=== PATIENT | female | born 1950 | race Caucasian/White ===

== ENCOUNTER 2017-05-12 07:30 | Inpatient (IN) | payer OTHER ==
--- NOTE | 2017-05-06 16:07 | Cons- Neurosurgical ---
General Information and HPI Consulting Request Date of Consult: 05/06/17 Requested By: Raúl Cantu MD Reason for Consult: Lower back pain and left leg pain Source of Information: patient Exam Limitations: no limitations History of Present Illness: 66-year-old right-handed lady who started 5 years ago having lower back pain. 3 years ago this pain was just started having left leg pain as well. She went through a series of injections which did not improve her beyond a certain degree. The symptoms have returned and especially the last few weeks and significantly bothersome in her left leg. Symptoms are worse with activity bending sitting standing and walkingsomewhat improved with rest and medication. She complains of weakness in her lower back, numbness in her leg and tingling on the left side. She has had extensive physical therapy in the past Allergies/Medications Allergies: Coded Allergies: adhesive (RASH 05/03/17) Home Med List: Atorvastatin Calcium 10 MG TABLET 1 TAB PO QPM CHOLESTEROL (Reported) Diltiazem HCl (Diltiazem 24HR ER) 240 MG CAP.ER.24H 1 CAP PO QPM BP (Reported ) Losartan Potassium (Cozaar) 25 MG TABLET 1 TAB PO QPM BP (Reported) Magnesium Oxide (Magox 400) 400 MG TABLET 1 TAB PO QPM HEART (Reported) Metoprolol Succ XL (Toprol XL) 25 MG TAB 1 TAB PO QPM BP (Reported) Current Medications: She is taking Criselda M atorvastatin metoprolol losartan and magnesium oxide Past History Medical History Blood Transfusion Hx: No Neurological: NONE EENT: NONE Cardiovascular: hypertension, hyperlipidemia Respiratory: NONE Gastrointestinal: NONE Hepatic: NONE Renal: NONE Musculoskeletal: NONE Psychiatric: NONE Endocrine: NONE Blood Disorders: NONE Cancer(s): colon/rectal cancer MANAGER FLEET/Reproductive: deferred Other Medical Hx: Hypertension high cholesterol hepatitis C palpitations: Resection knee replacements and lumbar spine surgery Surgical History Pertinent Surgical History: colon resection, knee replacement, spinal fusion Psychosocial History Where Do You Live? Home Who Do You Live With? spouse Services at Home: None Primary Language: Bermudian Smoking Status: Never Smoked ETOH Use: denies use Illicit Drug Use: denies illicit drug use Living Will? unknown Power of Cloth Trimmer Hand/HCP? unknown Name of POA/HCP: Dr. Clark Other Social History: Irrelevant Functional Ability ADLs Independent: dressing. Ambulation: independent IADLs Independent: shopping. Employment History Employment: Employed Profession/Employer: realtor Retired? no Review of Systems Review of Systems: She complains of weakness in her low back numbness in her leg tingling in the left leg she denies any bowel bladder or sexual dysfunction she has some knee pain associated Review of Systems Constitutional: Denies: no symptoms. EENTM: Denies: no symptoms. Cardiovascular: Denies: no symptoms. Respiratory: Denies: no symptoms. GI: Denies: no symptoms. Genitourinary: Denies: no symptoms. Musculoskeletal: Denies: no symptoms. Skin: Denies: no symptoms. Neurological/Psychological: Denies: no symptoms. Hematologic/Endocrine: Denies: no symptoms. Immunologic/Allergic: Denies: no symptoms. Exam & Diagnostic Data Vital Signs and I&O Blood pressure 120/60 Physical Exam: -3, 190 pounds. She has a well-healed scar on her back Treatment excellent range of motion bending minimally compromised level of hyperextension. Her gait favors slightly left leg. She is able to stand on heels and tiptoes. Motor strength is 5 over 5 in all groups. She has absent knee jerks bilaterally on the right due to her surgery. She has decreased sensation over L4 and possibly an L3 distribution on the left. Ankle jerks are present toes of ongoing. She has negative straight leg raising Physical Exam General Appearance: no apparent distress Head: atraumatic Eyes: Bilateral: normal appearance. Ears, Nose, Throat: normal pharynx Neck: supple Respiratory: chest non-tender Cardiovascular: edema Breasts deferred Peripheral Pulses: 2+ carotid (R), 2+ carotid (L) Gastrointestinal: soft Rectal: deferred Back: decreased range of motion, scar from previous surgery Extremities: normal inspection Neurologic/Psych: awake, alert, oriented x 3 Cranial Nerves: normal hearing Reflexes: 2+: bicep (R). Skin: intact Lymphatic: no anterior cervical kishore Reproductive: deferred Pelvic: deferred Other Physical Findings: See above note Last 24 Hours of Labs: EKG pending Imaging Results: CT scan shows a collapsed space at L3 4 as well as a prior left-sided laminotomy , osteophytic ridging and facet arthrosis worse on the right. an mri shows severe facet arthropathic changes at l3 4 as well as a possible disc and left neural foramen with impingement of the exiting root at that level Other Results: Coagulation within normal limits Assessment/Plan Assessment/Plan L3 4 collapse spondylosis and foraminal entrapment possible disc disease Candidate for decompression of the nerve roots and stabilization Other Findings/Comments: Martir findings Copies To: Alondra HOLLINGSWORTH,Raúl Cruz Consult Acknowledgment - Thank you for your consult request.
[~2017-05-12] VITALS: Ht 160 cm; Wt 89.8 kg
[~2017-05-12 07:30] MED LIST: ATORVASTATIN CA10 M1 PO; ATORVASTATIN CA10 MG PO; CALCIUM 600600 M1 PO; COZAAR25 M1 PO; DILTIAZEM 24HR240 MG PO; DILTIAZEM HCL240 MG PO; FISH OIL CONCEN1 SGL PO; LISINOPRIL2.5 MG PO; MAGOX 400400 MG PO; METOPROLOL SUCC50 M1 PO; MOTRIN 600 MG600 MG PO; NORFLEX100 MG PO; TOPROL XL25 M1 PO; VITAMIN D2000 UNIT PO; VITAMIN D31000 I1 PO
--- NOTE | 2017-05-14 13:47 | Operative Report ---
Operative/Inv Procedure Report Surgery Date: 05/14/17 Name of Procedure: #1 revision of scar lumbar over 5 cm #2 left revision hemilaminectomy L3 4 #3 left medial facetectomy and foraminotomy L34 #4 left neurolysis L3-4 #5 right hemilaminotomy L3 4 with medial facetectomy and foraminotomy #6 preparation of space for fusion L3 4 left #7 reconstitution of graft material #8 insertion of TL ORIF fuse interbody cage As secondary #9 stealth registration #10 stealth guided pedicle screw insertion L3-L4 bilateral #11 arthrodesis auto- and allograft L3 4 Pre-Operative Diagnosis: #1 foraminal entrapment L3 4 bilateral left worse than right #2 spondylosis L3 4 #3 collapsed disc space L3 4 Post-Operative Diagnosis: Same Estimated Blood Loss: 750 mL Surgeon/Closet Builder: Alondra HOLLINGSWORTH,Raúl Cruz(co-surgeon) Dr. Neto Barton Anesthesia: general endotracheal tube Monitors: neurophysiology IV Fluids: d5ns Implants: FUSE cage 11 mm x 22 x 4 Urine Output: 300 Drains: 2 Jeovanny Jeannine Specimens: None Microbiology: None Tourniquet: None Complications: None Condition: stable Operative Indication: 66-year-old right-handed white female with long-standing history of back pain complicated more recently by left leg pain. She failed all conservative measures and was noted to have a collapsed space at L3 4 at the site of her previous surgery with significant foraminal entrapment. Indications for surgery alternative risks and possible complication were discussed at length. In complications including disfigurement and paralysis but are not limited to that. Patient understood and requested surgery and signed consent Operative/Procedure Note Note: Patient was brought to the operating room supine was intubated supine received 2 g of intravenous antibiotics and was then placed prone on the Jeovanny table. Her back was prepped and draped usual sterile manner after verifying all positioning was satisfactory regarding pressure. Short was inserted. After infiltrating with Xylocaine and epinephrine the skin was incised and the previous incision was removed since some of the puckering of the skin and some cutaneous blemishes made it gannon to remove this extra tissue and this was done over a distance of greater than 5 cm Sharp dissection was carried down to the aponeurosis which was then divided on both sides of the midline and a subperiosteal elevation of the muscle was performed bilaterally. Dissection was carried down onto the lamina atop the facets and onto the transverse processes of 3 and 4. A film was obtained confirming that we had a marker under the lamina of 3 We started with a revision laminotomy on the left-hand side removing scar identifying the bottom part of the lamina and performing a hemilaminectomy which was then extended laterally with removal of the medial facets and right foraminotomy. Following this a very tedious neurolysis was accomplished identifying ultimately the roots of 3 and 4. Attention was then directed to the contralateral side where the edge of the lamina of L3 was identified and using 3 and 4 mm Kerrisons a large hemilaminotomy was likewise accomplished preserving the spinous process. Ligamenta flava was taken down a partial medial facetectomy was performed the foramen a were identified and widely opened Attention was then directed back to the left-hand side where the disc space was entered first with a spinal tap needle been with a [place] 4 in the annulus incised with 11 blade knife. Disc material was removed with micro-graspers and straight and up-biting find pituitaries following which first a 6 mm then an 8 mm through 11 mm dilators were placed until it was felt that the distraction was satisfactory and the retention for strong enough Was thus decided to proceed with an 11 mm trial insertion which gave a picture that was satisfactory The space was prepared with aggressive curettes and straight and up-biting pituitaries. DBF graft on material was reconstituted with blood obtained in the field. Following this the cage was packed with autologous bone and inserted in the standard fashion into the space without any complications E either visible or on neurophysiology. Films obtained demonstrated a cage be in satisfactory position by both on AP and lateral films Following this the attachment for the Stealth starburst was attached to the spinous process of L5 and the O arm was brought in and spun and films obtained to prepare for stealth registration which was then accomplished and guidance which was used for the remainder of the case Using the Stealth information was pedicle screws were placed in the pedicles of 3 and 4 bilaterally were then tested and found to not be abnormally responsive Following this autologous and graft on material were placed in the both gutters and then covered with vancomycin powder 30 mm rods were then inserted bilaterally irrigation was continued and 2 Jeovanny -Mcconnell drains were placed in the epidural space. Muscle and aponeurosis were reapproximated with 0 Dexon subcutaneous and subcuticular tissue were reapproximated with 3-0 Dexon and skin closed with stainless steel carlo. A full dressing was applied the bulbs were attached to the drains the patient was in satisfactory condition upon removal to the recovery room Findings: Collapsed disc space Foraminal entrapment Discharge Disposition: PACU Additional Comments: Neurophysiology remained quiet and normal with an awl case CC: Alondra HOLLINGSWORTH,Raúl Cruz; Matt Rangel MD
--- NOTE | 2017-05-14 15:25 | PN- Orthopedic ---
Subjective Subjective: post op check: pt comfortable. pain improved with iv morphine. getting 300ml cell saver back. no LE weakness or numbness Objective Vital Signs and I&Os vss afebrile Physical Exam: Well-developed well-nourished no apparent distress.mildly drowsy from anethesia. HEENT: Atraumatic, extraocular motion intact Neck: Supple, no lymphadenopathy Respiratory: No respiratory distress Back: Dressing clean dry and intact, AIDEN drains in place to self suction, minimal amount of serosanguineous drainage Extremities: No edema, no calf pain Neuro: Alert and oriented x3, nvi distally with limited exam due to pain Psych: Mood affect normal, normal memory normal judgment. Skin: Warm and dry, no rash on exposed skin Assessment/Plan Assessment/Plan sp L3-L4 decompressive lumbar laminectomy, instrumental fusion revision, scar revision secondary to L3 4 degenerative disc disease radiculopathy with spinal stenosis affecting left side Orthopedic stable. Preoperative antibiotics. Regular medications. Regular diet. IV fluids until tolerating adequate PO. Continue Short catheter. AIDEN drains 2 to self suction Dressing change postop day 2 Follow am labs ALPS for DVT prophylaxis PT tomorrow, oob Pain meds as needed PO valium for spasm Cell saver transfusion given Core Measures Venous Thromboembolism VTE Risk Factors Age>40 No Mechanical VTE Prophylaxis d/t N/A MechProphylax Ordered No VTE Pharm Prophylaxis d/t Other (physician declined)
--- NOTE | 2017-05-14 15:28 | Surgical Discharge Summary ---
Visit Information Visit Dates Admission Date: 05/14/17 Discharge Date: 05/18/17 History of Present Illness Chief Complaint: Left-sided back pain, left anterior thigh numbness and radicular pain Medical History Blood Transfusion Hx: No Neurological: NONE EENT: NONE Cardiovascular: hypertension, hyperlipidemia Respiratory: NONE Gastrointestinal: NONE Hepatic: NONE Renal: NONE Musculoskeletal: NONE Psychiatric: NONE Endocrine: NONE Cancer(s): colon/rectal cancer Other Medical Hx: Hypertension high cholesterol hepatitis C palpitations: Resection knee replacements and lumbar spine surgery Pneumonia Vaccine: 01/14/10 Influenza Vaccine: 11/15/11 Surgical History Pertinent Surgical History: colon resection, knee replacement, spinal fusion Psychosocial History Where Do You Live? Home Who Do You Live With? Family Services at Home: None What is Your Primary Language? Bolivian ETOH Use: denies use Other Addictive Behavior: Irrelevant Review of Systems: seeH&P Hospital Course Course Attending Physician: Alondra HOLLINGSWORTH,Raúl Cruz Primary Care Physician: Christian Staley MD Hospital Course: Patient has spinal stenosis, was indicated for a L3-L4 decompression laminectomy fusion which went without complications. She was given perioperative antibiotics. Drains were placed. Patient underwent a evaluation by physical therapy. She was given pain medication as needed. Her diet was advanced, she voided spontaneously after the Short was removed. Postopeerative course complicated by baradycardia. She was monitored on telemetry unit, cardiology consult was obtained, and cardiology medications were adjusted. Her vital signs are now stable, laboratory values acceptable and she deemed stable for discharge from hospital. Complications: None Allergies: Coded Allergies: adhesive (RASH 05/03/17) Disposition Summary Disposition Principal Diagnosis: sp L3-L4 decompressive lumbar laminectomy, instrumental fusion revision, scar revision secondary to L3 4 degenerative disc disease radiculopathy with spinal stenosis affecting left side Additional Diagnosis: See above Discharge Disposition: home health services Discharge Instructions General Discharge Information Code Status: Full Code Patient's Diet: Regular Patient's Activity: No lifting greater than 5 pounds Back brace as needed for comfort Pain medication as needed No excessive bending lifting or twisting Follow-Up Instructions/Appts: With Raúl Cantu MD within 10 days Medications at Discharge Discharge Medications: Stop taking the following medications: Diltiazem HCl (Diltiazem 24HR ER) 240 MG CAP.ER.24H ORAL Every night Continue taking these medications: Atorvastatin Calcium (Atorvastatin Calcium) 10 MG TABLET 1 Tablet ORAL Every night Metoprolol Succ XL (Toprol XL) 25 MG TAB 1 Tablet ORAL Every night Losartan Potassium (Cozaar) 25 MG TABLET 1 Tablet ORAL Every night Magnesium Oxide (Magox 400) 400 MG TABLET 1 Tablet ORAL Every night Cholecalciferol (Vitamin D3) (Vitamin D) 2,000 UNIT CAPSULE 1 Capsule ORAL DAILY Start taking the following new medications: Hydromorphone HCl (Hydromorphone HCl) 2 MG TABLET 1-2 Tablet ORAL EVERY 4-6 HOURS NEEDED as needed for PAIN Qty = 30 No Refills Instructions: . Diazepam (Diazepam) 5 MG TABLET 5 Milligram ORAL THREE TIMES DAILY as needed for SPASMS Qty = 9 No Refills Instructions: . Docusate Sodium (Docusate Sodium) 100 MG CAPSULE 100 Milligram ORAL TWICE DAILY as needed for CONSTIPATION Qty = 20 No Refills Instructions: .
--- NOTE | 2017-05-14 15:30 | Patient Discharge Instructions ---
Discharge Instructions General Discharge Information You were seen/treated for: sp L3-L4 decompressive lumbar laminectomy, instrumental fusion revision, scar revision secondary to L3 4 degenerative disc disease radiculopathy with spinal stenosis affecting left side You had these procedures: See above Watch for these problems: Fever, flulike illness, drainage or discharge from the wound, redness about the wound, nausea vomiting or confusion, headaches, weakness or numbness in the extremities, loss of bowel or bladder function Call Surgeon to remove: [place] (within 2 weeks) Do not soak the wound: Yes No bath, but you may shower: Yes Other wound care: Change his dressing daily, keep dry, change with wet on the monitor for large amounts of drainage or redness Special Instructions: Use a back brace as needed when out of bed. Do not take your Diltiazem until followup with Dr. [place]. Diet Continue normal diet: Yes Activity Full Activity/No Limits: No Activity Self Limited: Yes Pounds, do NOT lift more than: 5 Other activity limits: No excessive bending lifting or twisting Acute Coronary Syndrome Inclusion Criteria At DC or during hospital stay patient has or had the following: ACS DIAGNOSIS No Discharge Core Measures Meds if any: Prescribed or Continued at Discharge Meds if any: NOT Prescribed or Continued at Discharge Congestive Heart Failure Inclusion Criteria At DC or during hospital stay patient has or had the following: CHF DIAGNOSIS No Discharge Core Measures Meds if any: Prescribed or Continued at Discharge Meds if any: NOT Prescribed or Continued at Discharge Cerebrovascular accident Inclusion Criteria At DC or during hospital stay patient has or had the following: CVA/TIA Diagnosis No Discharge Core Measures Meds if any: Prescribed or Continued at Discharge Meds if any: NOT Prescribed or Continued at Discharge Venous thromboembolism Inclusion Criteria VTE Diagnosis No VTE Type NONE VTE Confirmed by (Test) NONE Discharge Core Measures - Per Current guidelines, there needs to be overlap - treatment for the first 5 days of Warfarin therapy. - If discharged on Warfarin prior to 5 days of - overlap therapy, the patient will need to be - assessed for post discharge needs including - *Post discharge parental anticoagulation - *Warfarin and/or parental anticoagulation education - *Follow up date to check INR post discharge At least 5 days overlap therapy as Inpatient No Meds if any: Prescribed or Continued at Discharge Note: Overlap Therapy is Warfarin and Anticoagulant Meds if any: NOT Prescribed or Continued at Discharge
[2017-05-14 18:15] VITALS: BP 118/68
[2017-05-14 21:34] VITALS: BP 114/69
[2017-05-15 07:50] VITALS: BP 119/56
[2017-05-15 08:06] LABS: ABSOLUTE BASOPHIL COUNT 0 /CUMM (0.0-0.2); ABSOLUTE EOSINOPHIL COUNT 0 /CUMM (0.0-0.7); ABSOLUTE GRANULOCYTE CT 7.4 /CUMM (1.4-6.5); ABSOLUTE LYMPH COUNT 0.7 /CUMM (1.2-3.4); ABSOLUTE MONOCYTE COUNT 0.4 /CUMM (0.10-0.60); BASOPHIL % 0 % (0.0-2.0); EOSINOPHIL % 0 % (0-5); HEMATOCRIT 33.1 % (37-47); MEAN CORPUSCULAR HGB 28.7 PG (27.0-31.0); MEAN CORPUSCULAR HGB CONC 33.3 G/DL (33.0-37.0); MEAN CORPUSCULAR VOLUME 86.3 FL (81.0-99.0); PLATELET COUNT 194 /CUMM (130-400); RBC DISTRIBUTION WIDTH 13.7 % (11.5-14.5); RED BLOOD CELL CT 3.83 /CUMM (4.20-5.40); WHITE BLOOD CELL COUNT 8.6 /CUMM (4.8-10.8)
--- NOTE | 2017-05-15 09:14 | PN- Neurosurgical ---
See Addendum Subjective Subjective: POD #1 s/p L3-4 laminectomy with AIDEN x2 placement. Resting in bed. Complains of back pain. Yet to ambulate. Voiding via keller catheter. Anxious to walk. Tolerating a regular diet. Nauseated from pain meds (has hx of intolerance to all narcotics). No F/C, CP/SOB. Objective Vital Signs and I&Os Vital Signs Date Time Temp Pulse Resp B/P B/P Pulse O2 O2 Flow FiO2 Mean Ox Delivery Rate 05/15 0750 98.2 66 20 119/56 96 Room Air 05/14 2134 68 114/69 05/14 2133 68 114/69 05/14 2133 98.5 68 18 114/69 96 Nasal 2.0L Cannula 05/14 190 Nasal 3.0L Cannula 05/14 1814 98.3 64 18 118/68 95 Nasal 3.0L Cannula Intake & Output 05/15 1600 05/15 0800 05/15 0000 05/14 1600 05/14 0800 05/14 0000 Intake Total 600 300 Output Total 190 255 Balance 410 45 Intake, IV 600 300 Output, 40 55 Drainage Output, Urine 150 200 Patient 198 lb Weight Weight Reported by Patient Measurement Method AIDEN #1: 20/25=45ml/24 hours AIDEN #2: 25/25=50ml/24 hours Physical Exam: Gen: AAox3 in NAD Cor: S1+S2+ Lungs: CTA celeste Abd: soft Back: dressing C/D/I. JPs holding suction. Sanguineous drainage noted. Drains stripped. Ext: dorsiflexion/plantar flexion intact celeste. Feet warm. DP pulses palpable celeste. Current Medications: Current Medications Sig/[place] Start time Last Medication Dose Route Stop Time Status Admin Acetaminophen 650 MG Q6P PRN / 1815 AC PO Atorvastatin Calcium 10 MG 1700 05/14 1700 AC 05/14 PO 2135 Cefazolin Sodium 2 GM IQ8 05/15 1230 AC N/A 1 UNIT IV 05/16 1229 Cefazolin Sodium 2 GM Q8H 05/14 2000 DC 05/15 N/A 1 UNIT IV 05/15 0429 0437 Cefazolin Sodium 2,000 MG ONCE 05/14 0000 DC IV 05/14 2359 Cholecalciferol 2,000 IU DAILY 05/15 1000 AC PO Dexamethasone 4 MG .STK-MED ONE 05/14 1721 DC IM 05/14 1722 Dextrose/Sodium 1,000 ML .[id number] 05/14 1815 DC 05/15 Chloride IV 0057 Diazepam 5 MG TID PRN 05/14 1515 AC PO Diltiazem HCl 120 MG BID 05/14 2200 AC 05/14 PO 2134 Docusate Sodium 100 MG DAILY 05/15 1000 AC PO Docusate Sodium 100 MG DAILY NEEDED PRN 05/14 1815 DC PO Ketorolac 15 MG TID PRN 05/14 1515 AC 05/15 Tromethamine IV 0437 Losartan Potassium 25 MG QPM 05/14 2200 AC 05/14 PO 2135 Magnesium Oxide 400 MG QPM 05/14 2200 AC 05/14 PO 2135 Meperidine HCl 50 MG .STK-MED ONE 05/14 1456 DC IM 05/14 1457 Meperidine HCl 50 MG .STK-MED ONE 05/14 1422 DC IM 05/14 1423 Metoprolol Succinate 25 MG QPM 05/14 2200 AC 05/14 PO 2134 Morphine Sulfate 4 MG Q2P PRN 05/14 1815 AC 05/14 IV 2132 Omeprazole 40 MG DAILY AC 05/15 0700 AC 05/15 PO 0622 Ondansetron HCl 4 MG Q6P PRN 05/14 1815 AC IV Oxycodone/ 1 TAB Q4P PRN 05/14 1815 AC Acetaminophen PO Oxycodone/ 2 TAB Q4P PRN 05/14 1815 AC 05/15 Acetaminophen PO 0651 Polyethylene Glycol 17 GM DAILY 05/15 1000 AC PO Polyethylene Glycol 17 GM DAILY NEEDED PRN 05/14 1815 DC PO Promethazine HCl 12.5 MG Q6P PRN 05/14 1815 AC IV 05/21 1459 Remifentanil 2 MG .STK-MED ONE 05/14 1105 DC IV 05/14 1106 Senna 374 MG BID 05/15 1000 AC PO Senna 374 MG AT BEDTIME NEED.. 05/14 1815 DC PO Results Last 48 Hours of Labs: Laboratory Tests 05/16 707 Chemistry Sodium Pending Potassium Pending Chloride Pending Carbon Dioxide Pending Anion Gap Pending BUN Pending Creatinine Pending BUN/Creatinine Ratio Pending Hematology CBC w Diff Pending WBC Pending RBC Pending Hgb Pending Hct Pending MCV Pending MCH Pending MCHC Pending RDW Pending Plt Count Pending MPV Pending Gran % Pending Lymphocytes % Pending Monocytes % Pending Eosinophils % Pending Basophils % Pending Absolute Granulocytes Pending Absolute Lymphocytes Pending Absolute Monocytes Pending Absolute Eosinophils Pending Absolute Basophils Pending Assessment/Plan Assessment/Plan A: POD #1 s/p L3-4 laminectomy; AVSS. Oliguria in setting of hypovolemia. Plan: Stop IVF. Encouraging PO intake. D/C keller catheter. Will be due to void. Encouraged use of incentive spirometry. Continuing ancef while drains in place. Further recommendations per Dr. Cantu. PT eval today- ordered. Core Measures Venous Thromboembolism VTE Risk Factors Age>40 No Mechanical VTE Prophylaxis d/t N/A MechProphylax Ordered No VTE Pharm Prophylaxis d/t Other (physician declined)
[2017-05-15 09:26] LABS: GRANULOCYTE % 86.3 % (42.2-75.2)
--- NOTE | 2017-05-15 11:15 | Event Note ---
See Addendum Event Note Event Note: Rapid response called: pt just finished working with PT when she suddenly felt lightheaded, dizzy, short of breath. vs: HR 76, BP 150/80, O2 99%, she was placed on supplemental oxygen. Medical staff there as well, Evaluating patient. She denies any chest pain or pleuritic pain. She denies any palpitations. Her only complaint is that of back pain and a sore throat. Upon lying down that she is feeling much better. Her laboratory values this morning are stable. She did not have any loss of consciousness, likely a vasovagal response from the first time being up and out of bed after a long surgery, pain medication and anesthesia and exerting herself with physical therapy. We will continue to monitor her status, she is placed flat in bed and symptoms are improving. EKG and chest x-ray as well as add on lab tests done by hospitalist staff, their assistance is appreciated.
--- NOTE | 2017-05-15 12:17 | PN- Neurosurgical ---
Surgical Brief Attending Note Brief Attending Note: Postoperative day #1 Patient resting when seen. Heads 2 vasovagal type reactions this morning which are being worked up by medicine Back his dry the drains of drained approximately 50 mL each Leg pain has resolved Overall she's doing well but obviously medicine needs to, and tendon workup for these 2 vasovagal episodes. I expect that the drains can come out tomorrow and depending on how well she ambulates she could possibly go home on Thursday barring any further issues
[2017-05-15 14:14] VITALS: BP 122/56
--- NOTE | 2017-05-15 14:24 | RADIOLOGY REPORT ---
EXAMINATION: CR PORTABLE CHEST CLINICAL INFORMATION: Sudden shortness of breath. Post lumbar surgery day 1. Evaluate for pulmonary edema. COMPARISON: Chest x-ray dated 03/26/2012. TECHNIQUE: Portable AP semierect view of the chest was obtained. FINDINGS: The cardiomediastinal silhouette is prominent, likely due to AP semierect positioning and low lung volumes. Low lung volumes are seen without focal consolidation, effusion or pneumothorax. No pulmonary edema. Bony structures are unremarkable. IMPRESSION: Low lung volumes. No evidence of pulmonary edema or other focal acute pulmonary process.
--- NOTE | 2017-05-15 16:54 | RADIOLOGY REPORT ---
EXAMINATION: XR LUMBOSACRAL SPINE XR L3-L4 FUSION CLINICAL INFORMATION: Intraoperative fluoroscopic and CT guidance provided for Dr. Cantu to perform L3-L4 fusion. COMPARISON: CT lumbar spine 02/02/2017. TECHNIQUE: Intraoperative fluoroscopic spot views and cone beam CT. FLUOROSCOPY TIME: 18 seconds TOTAL NUMBER OF IMAGES: 12 fluoroscopic spot views, [address] FINDINGS: The provided images demonstrate placement of pedicle screws at the L3 and L4 levels with an intervertebral disc spacing device. IMPRESSION: L3-L4 fusion. Refer to operative notes for details.
[2017-05-15 22:06] VITALS: BP 120/70
[2017-05-16 05:59] VITALS: BP 118/60
--- NOTE | 2017-05-16 08:21 | PN- Neurosurgical ---
See Addendum Subjective Subjective: Nursing contacted regarding bradycardia in the 40s. Patient evaluated at bedside , reports sudden intermittent chest pressure that began 20 mins ago. Stat EKG reveals sinus bradycardia of 46 bpm. She also reports lightheadedness, congestion in her throat/chest and trouble swallowing. She reports similar episode yesterday and RR was called. Medicine evaluated yesterday, no official consult in the chart. Objective Vital Signs and I&Os Vital Signs Date Time Temp Pulse Resp B/P B/P Pulse O2 O2 Flow FiO2 Mean Ox Delivery Rate 05/16 0559 98.3 61 22 118/60 97 Nasal 2.0L Cannula 05/16 0000 98 Nasal 2.0L Cannula 05/15 220 98.0 50 20 120/70 96 05/15 2147 120/70 05/15 2145 120/70 05/15 1600 98 Nasal 2.0L Cannula 05/15 1414 98.2 57 20 122/56 97 Nasal 2.0L Cannula Intake & Output 05/16 1600 05/16 0800 05/16 0000 05/15 1600 05/15 0800 05/15 0000 Intake Total 840 900 600 300 Output Total 1065 700 465 190 255 Balance -1065 140 435 410 45 Intake, IV 300 600 300 Intake, Oral 840 600 Output, 65 40 40 55 Drainage Output, Urine 1000 700 425 150 200 Patient 198 lb Weight Weight Reported by Patient Measurement Method Physical Exam: Gen - Sitting upright with 2L of O2 in moderate distress Cardiac - S1S2 and bradycardic, HR monitor reading between 38-48 Lungs - Fair inspiratory effort, incresed resp effort, stridorus throughout Back - dressing c/d/i, JPs holding suction, sanguineous drainage noted Ext - no edema or calf tenderness, motor and sensory intact, pulses present Current Medications: Current Medications Sig/[place] Start time Last Medication Dose Route Stop Time Status Admin Acetaminophen 650 MG Q6P PRN 05/14 1815 AC PO Atorvastatin Calcium 10 MG AT BEDTIME 05/15 2200 AC 05/15 PO 2146 Atorvastatin Calcium 10 MG 1700 05/14 1700 DC 05/14 PO 2135 Benzocaine/Menthol 1 LUCAS Q2P PRN 05/15 1130 AC PO Cefazolin Sodium 2 GM IQ8 05/15 1230 AC 05/15 N/A 1 UNIT IV 05/16 1229 2336 Cholecalciferol 2,000 IU 05/15 220 AC 05/15 PO 2145 Cholecalciferol 2,000 IU DAILY 05/15 1000 DC PO Dextrose/Sodium 1,000 ML .[id number] 05/14 1815 DC 05/15 Chloride IV 0057 Diazepam 5 MG TID PRN 05/14 1515 AC PO Diltiazem HCl 120 MG BID 05/14 2200 AC 05/15 PO 2147 Diphenhydramine HCl 50 MG ONCE ONE 05/15 1145 CAN IV 05/15 1146 Diphenhydramine HCl 25 MG ONCE ONE 05/15 1145 DC 05/15 IV 05/15 1146 1151 Docusate Sodium 100 MG DAILY 05/15 1000 AC PO Docusate Sodium 100 MG DAILY NEEDED PRN 05/14 1815 DC PO Ketorolac 15 MG .STK-MED ONE 05/15 1315 DC Tromethamine IM 05/15 1316 Ketorolac 15 MG TID PRN 05/14 1515 AC 05/15 Tromethamine IV 1319 Losartan Potassium 25 MG QPM 05/14 2200 AC 05/15 PO 2147 Magnesium Oxide 400 MG QPM 05/14 2200 AC 05/15 PO 2146 Metoprolol Succinate 25 MG QPM 05/14 2200 AC 05/15 PO 2145 Morphine Sulfate 4 MG Q2P PRN 05/14 1815 AC 05/14 IV 2132 Omeprazole 40 MG DAILY AC 05/15 0700 AC 05/16 PO 0553 Ondansetron HCl 4 MG Q6P PRN 05/14 1815 AC IV Oxycodone/ 1 TAB Q4P PRN 05/14 1815 AC Acetaminophen PO Oxycodone/ 2 TAB Q4P PRN 05/14 1815 AC 05/16 Acetaminophen PO 0554 Patient Medication 1 ED ONE ONE 05/15 1315 DC Teaching ED 05/15 1316 Polyethylene Glycol 17 GM DAILY 05/15 1000 AC PO Polyethylene Glycol 17 GM DAILY NEEDED PRN 05/14 1815 DC PO Promethazine HCl 12.5 MG Q6P PRN 05/14 1815 AC IV 05/21 1459 Senna 374 MG BID 05/15 1000 AC PO Senna 374 MG AT BEDTIME NEED.. 05/14 1815 DC PO Sodium Chloride 500 ML BOLUS ONE 05/16 0815 AC IV 05/16 0914 Results Last 48 Hours of Labs: Laboratory Tests 05/15 05/15 1145 0708 Chemistry Sodium (137 - 145 mmol/L) 137 Potassium (3.5 - 5.1 mmol/L) 4.4 Chloride (98 - 107 mmol/L) 104 Carbon Dioxide (22 - 30 mmol/L) 24 Anion Gap (5 - 16) 10 BUN (7 - 17 mg/dL) 19 H Creatinine (0.5 - 1.0 mg/dL) 1.1 H Estimated GFR (>60 ml/min) 49 L BUN/Creatinine Ratio (7 - 25 %) 17.3 Magnesium (1.6 - 2.3 mg/dL) 1.9 Troponin I (< 0.11 ng/ml) < 0.01 < 0.01 Hematology CBC w Diff NO MAN DIFF REQ WBC (4.8 - 10.8 /CUMM) 8.6 RBC (4.20 - 5.40 /CUMM) 3.83 L Hgb (12.0 - 16.0 G/DL) 11.0 L Hct (37 - 47 %) 33.1 L MCV (81.0 - 99.0 FL) 86.3 MCH (27.0 - 31.0 PG) 28.7 MCHC (33.0 - 37.0 G/DL) 33.3 RDW (11.5 - 14.5 %) 13.7 Plt Count (130 - 400 /CUMM) 194 MPV (7.4 - 10.4 FL) 8.0 Gran % (42.2 - 75.2 %) 86.3 H Lymphocytes % (20.5 - 51.1 %) 8.7 L Monocytes % (1.7 - 9.3 %) 5.0 Eosinophils % (0 - 5 %) 0 Basophils % (0.0 - 2.0 %) 0 Absolute Granulocytes (1.4 - 6.5 /CUMM) 7.4 H Absolute Lymphocytes (1.2 - 3.4 /CUMM) 0.7 L Absolute Monocytes (0.10 - 0.60 /CUMM) 0.4 Absolute Eosinophils (0.0 - 0.7 /CUMM) 0 Absolute Basophils (0.0 - 0.2 /CUMM) 0 Assessment/Plan Assessment/Plan 66 F POD 2 s/p L3-4 laminectomy with chest pressure, stridor and sinus bradycardia in 40s Transfer to tele Consult medicine ? racemic epi Hold beta blockers Keep NPO, 500cc NC bolus, restart IVF Stat CXR, trops, cbc, lytes orders IV Ancef while drains in place TRC, supplemental O2 Follow up labs and imaging JPs pulled at bedside Will d/w her manager of applications development, Dr. Medellin for further recommendations Seen and discussed with Dr. Cantu Core Measures Venous Thromboembolism VTE Risk Factors Age>40 No Mechanical VTE Prophylaxis d/t N/A MechProphylax Ordered No VTE Pharm Prophylaxis d/t Other (physician declined)
[2017-05-16 08:23] LABS: ABSOLUTE BASOPHIL COUNT 0 /CUMM (0.0-0.2); ABSOLUTE EOSINOPHIL COUNT 0.1 /CUMM (0.0-0.7); ABSOLUTE GRANULOCYTE CT 6.7 /CUMM (1.4-6.5); ABSOLUTE LYMPH COUNT 2.2 /CUMM (1.2-3.4); ABSOLUTE MONOCYTE COUNT 0.6 /CUMM (0.10-0.60); BASOPHIL % 0.3 % (0.0-2.0); EOSINOPHIL % 0.6 % (0-5); GRANULOCYTE % 69.9 % (42.2-75.2); HEMATOCRIT 31.8 % (37-47); MEAN CORPUSCULAR HGB 28.6 PG (27.0-31.0); MEAN CORPUSCULAR HGB CONC 33.2 G/DL (33.0-37.0); MEAN CORPUSCULAR VOLUME 86.2 FL (81.0-99.0); MEAN PLATELET VOLUME 7.5 FL (7.4-10.4); PLATELET COUNT 192 /CUMM (130-400); RBC DISTRIBUTION WIDTH 14.2 % (11.5-14.5); RED BLOOD CELL CT 3.68 /CUMM (4.20-5.40); WHITE BLOOD CELL COUNT 9.5 /CUMM (4.8-10.8)
--- NOTE | 2017-05-16 10:04 | Cons- Medical ---
Michael HOLLINGSWORTH,Jamel 05/16/17 1003: General Information and HPI Consulting Request Date of Consult: 05/16/17 Requested By: Alondra HOLLINGSWORTH,Raúl Cruz Reason for Consult: Bradycardia Source of Information: patient, old records Exam Limitations: no limitations History of Present Illness: 66 to female with pmhx of HTN, palpittations on cardizem and metoprolol, HLD, Vitamin D deficiency, who is POD #2 s/p L3-L4 decompression laminectomy with fusion due disc compression and spinal stenosis. No intraoperative complication reported. On POD DAY #1 a rapid response was activated due to patient experiencing lightheadedness when standing up, patient did not syncopize. On POD #2, patient was noted to be bradycardic with heart rates of 45-47s. EKG obtained showed a sinus bradycardia. Troponin x2 Trended were negative. It is noted that the patient is on 2 AV celine blockers and she received metoprol xl 25mg and Cardizem 120MG around 10pm the night before her bradycardic episodes. Of note, patient is seen by Dr Medellin for her tachycardia, she was preoperatively cleared after an unremarkable stress test. She has also been recently been tested for Lyme which was negative. Allergies/Medications Allergies: Coded Allergies: adhesive (RASH 05/03/17) Home Med List: Atorvastatin Calcium 10 MG TABLET 1 TAB PO QPM CHOLESTEROL (Reported) Cholecalciferol (Vitamin D3) (Vitamin D) 2,000 UNIT CAPSULE 1 CAP PO DAILY SUPPLEMENT (Reported) Diltiazem HCl (Diltiazem 24HR ER) 240 MG CAP.ER.24H 1 CAP PO QPM BP (Reported ) Losartan Potassium (Cozaar) 25 MG TABLET 1 TAB PO QPM BP (Reported) Magnesium Oxide (Magox 400) 400 MG TABLET 1 TAB PO QPM HEART (Reported) Metoprolol Succ XL (Toprol XL) 25 MG TAB 1 TAB PO QPM BP (Reported) Review of Systems Review of Systems Constitutional: Reports: see HPI. Past History Medical History Blood Transfusion Hx: No Neurological: NONE EENT: NONE Cardiovascular: hypertension, hyperlipidemia Respiratory: NONE Gastrointestinal: NONE Hepatic: hepatitis C Renal: NONE Musculoskeletal: sciatica Psychiatric: NONE Endocrine: NONE Cancer(s): colon/rectal cancer Other Medical Hx: Hypertension high cholesterol hepatitis C palpitations: Resection knee replacements and lumbar spine surgery Surgical History Surgical History: colon resection, knee replacement, laminectomy, spinal fusion Psychosocial History Where Do You Live? Home Who Do You Live With? spouse Services at Home: None Primary Language: Salvadorean Smoking Status: Never Smoked ETOH Use: denies use Illicit Drug Use: denies illicit drug use Living Will? unknown Power of Metal Cnc Operator/HCP? unknown Name of POA/HCP: Dr. Clark Other Social History: Irrelevant Functional Ability ADLs Independent: dressing. Ambulation: independent IADLs Independent: shopping. Employment History Employment: Employed Profession/Employer: realtor Exam & Diagnostic Data Last 24 Hrs of Vital Signs/I&O Vital Signs Date Time Temp Pulse Resp B/P B/P Pulse O2 O2 Flow FiO2 Mean Ox Delivery Rate 05/17 0600 98.2 56 18 148/72 98 Room Air 05/16 2228 98.0 57 20 122/68 95 Room Air 05/16 2216 Nasal 2.0L Cannula 05/16 2142 50 122/68 05/16 1400 98.6 47 20 126/60 95 Room Air 05/16 1000 98 Nasal 2.0L Cannula Intake & Output 05/17 1600 05/17 0800 03 0000 Intake Total 600 210 Output Total 450 350 Balance 150 -140 Intake, IV 400 150 Intake, Oral 200 60 Output, Urine 450 350 Physical Exam General Appearance: well developed/nourished, no apparent distress, alert Head: atraumatic, normal appearance Eyes: Bilateral: normal appearance, PERRL. Ears, Nose, Throat: normal pharynx, normal ENT inspection Neck: normal inspection Respiratory: normal breath sounds, chest non-tender Cardiovascular: bradycardic, slight murmur 1/6 on LUSB. Gastrointestinal: normal bowel sounds, soft, non-tender Extremities: normal inspection, normal capillary refill, no edema Neurologic/Psych: no motor/sensory deficits, awake, alert, oriented x 3 Last 24 Hrs of Labs/Al: Laboratory Tests 05/17/17 0625: Anion Gap 7, Estimated GFR > 60, BUN/Creatinine Ratio 16.3, Magnesium 1.9, CBC w Diff Pending, WBC Pending, RBC Pending, Hgb Pending, Hct Pending, MCV Pending, MCH Pending, MCHC Pending, RDW Pending, Plt Count Pending, MPV Pending 05/16/17 1400: Troponin I Cancelled Diagnostic Data EKG Results sinus dejuan Assessment/Plan Assessment/Plan 66 to female with pmhx of HTN, palpittations on cardizem and metoprolol, HLD, Vitamin D deficiency, who is POD #2 s/p L3-L4 decompression laminectomy with fusion with no intraoperative complication. Medical team has been consulted to evaluate for Sinus Bradycardia. Impression * Sinus Bradycardia. ACS unlikely given no symptoms of chest pain and unremarkable trops and EKG. In the context of patient having taken her metoprolol xl 25mg and cardizem SR 120mg, it is more likely that patient bradycardia is 2/2 to AV celine blockers precipitated by post anesthesia effect. * Expiratory Stridor. Mild. Possible could be secondary to post extubation inflammation. CXR was unremarkable. * Hx of chronic disease: HLD, HTN, Lumbar disc herniation/stenosis, Vitamin D deficiency. Plan Hold all the AV celine medication (cardizem and metoprolol) Transfer to [facility] for close cardiac monitoring Bedside Atropine Initial x2 trops unremakrable, trend one more time. Cardiology consult (already notified) Current bp is controlled, if it becomes elvated consider non av-celine blockers such as amlodipine Continue o2 supplemenation TRC nebs Consider racemic epi if stridor worsens or peristent and effects breathing, might consider steroids if clinical suspicious of laryngeal edema develops. Continue incentive spirometry Pain management per surgical team Problem List: 1. Bradycardia Consult Acknowledgment - Thank you for your consult request. Ayan Carson MD 05/16/17 1426: Assessment/Plan Consult Acknowledgment - Thank you for your consult request. Attending MD Review Statement Attending Statement Attending MD Statement: examined this patient, discuss w/resident/PA/CLERK ANALYST, agreed w/resident/PA/CLERK ANALYST, discussed with family, reviewed EMR data (avail), reviewed images, amended to note Attending Assessment/Plan: The patient is a 66 yo female with h/o HTN, & HL and "palpitations" who underwent L3-4 decompression laminectomy 2 days ago. On the 1st day post operatively a rapid response was called due to lightheadedness with PT. The patient had sinus bradycardia (45-47 BPM) on EKG. She had been on her usual anti -hypertensive meds (Metoprolol XL and Cardizem ER). This morning the patient c/o some substernal chest discomfort and was found to be bradycardic. The patient had seen Dr. Medellin as part of pre-op evaluation and had normal ECHO and nuclear stress test (in [place]). The patient did state that Dr. Medellin had originally started her on the above meds to treat her "palpitations". She did have a Holter monitor. Dr. Medellin did not describe an arrhythmia in his pre-op medical evaluation. Physical Exam: VS: T 98.6, P 47-50, R 20, BP 122/68, PO 98% 2L/95% RA HEENT: eyes- PERRLA, EOMI kory- sl dry mucosa Neck: no JVD/bruits Chest: diminished BS at bases, clear Cor: dejuan, reg, nl S1, S2 w/o murm Abd: BS+, soft, NT Ext: no edema/tenderness, pulses 2+ Labs/Tests - as above Impression/Plan: #Bradycardia- sinus bradycardia noted on long acting beta yolette and calcium yolette. There may be some vagal component. She is post anesthesia/post op. Plan: Transfer to Telemetry floor for monitoring of HR. Hold Metoprolol XL and Diltiazem XR. Cardiology consult- Dr. Mario covering for Dr. Medellin. #HTN- patient BP as above. Plan: Continue Losartan, however hold Metoprolol and Diltiazem as per Dr. Mario. May need to adjust Losartan if needed. #H/O Palpitations- unclear as to results of her prior Holter with Dr. Medellin (? SVT). Plan: If develops tachycardia ma need to restart Metoprolol. #Chest Discomfort- was fleeting (none at present) and no ischemic changes on EKG. Unlikely to represent angina with negative preoperative pharmacologic stress test. Unlikely to represent PE, however patient is 2 days post op laminectomy. Plan: Will check serial troponins. Follow for increased symptoms. #S/P Lumbar Laminectomy- doing well. Plan: As per surgery.
--- NOTE | 2017-05-16 10:25 | RADIOLOGY REPORT ---
EXAMINATION: XR PORTABLE CHEST CLINICAL INFORMATION: 66-year-old man with bradycardia. COMPARISON: 05/15/2017 chest radiograph TECHNIQUE: Portable frontal view of the chest was obtained. FINDINGS: The lungs are well expanded and clear, without evidence of focal airspace consolidation or overt pulmonary edema. Subsegmental atelectasis at the left lung base is unchanged. Mild cardiomegaly is approximately stable. There are no large pleural effusions. IMPRESSION: No radiographic evidence of an acute cardiopulmonary process.
--- NOTE | 2017-05-16 12:24 | PN- Neurosurgical ---
Surgical Brief Attending Note Brief Attending Note: Postoperative day 2 Seen this morning after the above-mentioned events Stable at present. Her lower back pain is much improved. She has no leg pain. She was able to ambulate and go to the bathroom before this last event without any difficulty. The dressing is dry and his drains have been removed Bradycardia and difficulty breathing with a sensation of choking makes one wonder if there is some reaction to either medicine or dressing of some sort Appreciate medicines inputs and awaiting further input from Dr. Medellin. Agree with telemetry studies
[2017-05-16 14:00] VITALS: BP 110/70; BP 126/60
--- NOTE | 2017-05-16 20:27 | Cons- Cardiology ---
General Information and HPI Consulting Request Date of Consult: 05/16/17 Requested By: Alondra HOLLINGSWORTH,Raúl Cruz Reason for Consult: Sinus bradycardia History of Present Illness: The patient is a 66-year-old female with history of hypertension, palpitations, possible history of tachycardia who is followed in the office by Dr. Medellin. She is status post spinal surgery. Postoperatively she is noted to be in a sinus bradycardia with heart rates in the 30s and 40s. She has been taking her usual dose of metoprolol and diltiazem. She complains of postoperative pain. She had a single brief episode of palpitations this morning. No chest pain. No shortness of breath. No lightheadedness or dizziness. No nausea or vomiting. No diaphoresis. Allergies/Medications Allergies: Coded Allergies: adhesive (RASH 05/03/17) Home Med List: Atorvastatin Calcium 10 MG TABLET 1 TAB PO QPM CHOLESTEROL (Reported) Cholecalciferol (Vitamin D3) (Vitamin D) 2,000 UNIT CAPSULE 1 CAP PO DAILY SUPPLEMENT (Reported) Diltiazem HCl (Diltiazem 24HR ER) 240 MG CAP.ER.24H 1 CAP PO QPM BP (Reported ) Losartan Potassium (Cozaar) 25 MG TABLET 1 TAB PO QPM BP (Reported) Magnesium Oxide (Magox 400) 400 MG TABLET 1 TAB PO QPM HEART (Reported) Metoprolol Succ XL (Toprol XL) 25 MG TAB 1 TAB PO QPM BP (Reported) Current Medications: Current Medications Sig/[place] Start time Last Medication Dose Route Stop Time Status Admin Acetaminophen 650 MG Q6P PRN 05/14 1815 AC PO Atorvastatin Calcium 10 MG AT BEDTIME 05/15 220 AC 05/15 PO 2146 Atropine Sulfate 1 MG .STK-MED ONE 05/16 1020 DC IM 05/16 1021 Benzocaine/Menthol 1 LUCAS Q2P PRN 05/15 1130 AC PO Cefazolin Sodium 2 GM IQ8 05/15 1230 AC 05/16 N/A 1 UNIT IV 05/17 1228 1530 Cholecalciferol 2,000 IU 2200 05/15 2200 AC 05/15 PO 2145 Diazepam 5 MG TID PRN 05/14 1515 AC PO Diltiazem HCl 120 MG BID 05/14 2200 DC 05/15 PO 2147 Docusate Sodium 100 MG DAILY 05/15 1000 AC PO Ketorolac 15 MG TID PRN 05/14 1515 AC 05/16 Tromethamine IV 1256 Lactated Ringer's 1,000 ML Q20H 05/16 1915 AC IV Lactated Ringer's 1,000 ML Q8H 05/16 0830 DC 05/16 IV 1030 Losartan Potassium 25 MG QPM 05/14 2200 AC 05/15 PO 2147 Magnesium Oxide 400 MG QPM 05/14 2200 AC 05/15 PO 2146 Metoprolol Succinate 25 MG QPM 05/14 2200 DC 05/15 PO 2145 Morphine Sulfate 4 MG Q2P PRN 05/14 1815 AC 05/16 IV 2001 Omeprazole 40 MG DAILY AC 05/15 0700 AC 05/16 PO 0553 Ondansetron HCl 4 MG Q6P PRN 05/14 1815 AC IV Oxycodone/ 1 TAB Q4P PRN 05/14 1815 AC Acetaminophen PO Oxycodone/ 2 TAB Q4P PRN 05/14 1815 AC 05/16 Acetaminophen PO 0554 Polyethylene Glycol 17 GM DAILY 05/15 1000 AC PO Promethazine HCl 12.5 MG Q6P PRN 05/14 1815 AC IV 05/21 1459 Senna 374 MG BID 05/15 1000 AC PO Sodium Chloride 500 ML BOLUS ONE 05/16 0815 DC 05/16 IV 05/16 0914 0810 Review of Systems Review of Systems: No fever. No chills. No rash. No tremor. All other systems were reviewed, and were noted to be negative. Past History Medical History Blood Transfusion Hx: No Neurological: NONE EENT: NONE Cardiovascular: hypertension, hyperlipidemia Respiratory: NONE Gastrointestinal: NONE Hepatic: hepatitis C Renal: NONE Musculoskeletal: sciatica Psychiatric: NONE Endocrine: NONE Cancer(s): colon/rectal cancer Other Medical Hx: Hypertension high cholesterol hepatitis C palpitations: Resection knee replacements and lumbar spine surgery Surgical History Surgical History: colon resection, knee replacement, laminectomy, spinal fusion Family History Relations & Conditions If Any: FATHER Heart attack Psychosocial History Where Do You Live? Home Who Do You Live With? spouse Services at Home: None Primary Language: Slovenian Smoking Status: Never Smoked ETOH Use: denies use Illicit Drug Use: denies illicit drug use Living Will? unknown Power of Senior Android Developer/HCP? unknown Name of POA/HCP: Dr. Clark Other Social History: Irrelevant Functional Ability ADLs Independent: dressing. Ambulation: independent IADLs Independent: shopping. Employment History Employment: Employed Profession/Employer realtor Exam & Diagnostic Data Vital Signs and I&O Vital Signs Date Time Temp Pulse Resp B/P B/P Pulse O2 O2 Flow FiO2 Mean Ox Delivery Rate 05/16 1400 98.6 47 20 126/60 95 Room Air 05/16 1000 98 Nasal 2.0L Cannula 05/16 0800 98 Nasal 2.0L Cannula 05/16 0559 98.3 61 22 118/60 97 Nasal 2.0L Cannula 05/16 0000 98 Nasal 2.0L Cannula 05/15 2206 98.0 50 20 120/70 96 05/15 2147 120/70 05/15 2145 120/70 Intake & Output 05/16 1600 05/16 0800 05/16 0000 05/15 1600 05/15 0800 05/15 0000 Intake Total 500 840 900 600 300 Output Total 1065 700 465 190 255 Balance 500 -1065 140 435 410 45 Intake, IV 500 300 600 300 Intake, Oral 0 840 600 Output, 65 40 40 55 Drainage Output, Urine 1000 700 425 150 200 Patient 198 lb Weight Weight Reported by Patient Measurement Method Physical Exam: Gen: The patient is in no acute distress HEENT: Normal nose, ears, and oropharynx. Pupils equal bilaterally. Conjunctiva normal. Neck: Supple with no JVD, no masses, and no thyromegaly Lungs: Clear to auscultation with normal respiratory effort Heart: RRR, S1, S2, no murmurs. No peripheral edema, 2+ pulses in the lower extremities bilaterally Abdomen: Soft, nontender, no masses. No hepatomegaly. No splenomegaly Extremities: No clubbing or cyanosis. Normal muscle strength in the upper and lower extremities Skin: Normal skin turgor with no skin ulcers or lesions noted. Neuro: Cranial nerves intact. Sensation intact Psych: Alert and oriented x 3 with appropriate affect Labs/Al Results: Laboratory Tests 05/16 05/15 0810 1145 Chemistry Sodium (137 - 145 mmol/L) 138 Potassium (3.5 - 5.1 mmol/L) 4.2 Chloride (98 - 107 mmol/L) 104 Carbon Dioxide (22 - 30 mmol/L) 25 Anion Gap (5 - 16) 9 BUN (7 - 17 mg/dL) 19 H Creatinine (0.5 - 1.0 mg/dL) 0.9 Estimated GFR (>60 ml/min) > 60 BUN/Creatinine Ratio (7 - 25 %) 21.1 Magnesium (1.6 - 2.3 mg/dL) 2.2 1.9 Troponin I (< 0.11 ng/ml) < 0.01 < 0.01 Hematology CBC w Diff NO MAN DIFF REQ WBC (4.8 - 10.8 /CUMM) 9.5 RBC (4.20 - 5.40 /CUMM) 3.68 L Hgb (12.0 - 16.0 G/DL) 10.5 L Hct (37 - 47 %) 31.8 L MCV (81.0 - 99.0 FL) 86.2 MCH (27.0 - 31.0 PG) 28.6 MCHC (33.0 - 37.0 G/DL) 33.2 RDW (11.5 - 14.5 %) 14.2 Plt Count (130 - 400 /CUMM) 192 MPV (7.4 - 10.4 FL) 7.5 Gran % (42.2 - 75.2 %) 69.9 Lymphocytes % (20.5 - 51.1 %) 22.7 Monocytes % (1.7 - 9.3 %) 6.5 Eosinophils % (0 - 5 %) 0.6 Basophils % (0.0 - 2.0 %) 0.3 Absolute Granulocytes (1.4 - 6.5 /CUMM) 6.7 H Absolute Lymphocytes (1.2 - 3.4 /CUMM) 2.2 Absolute Monocytes (0.10 - 0.60 /CUMM) 0.6 Absolute Eosinophils (0.0 - 0.7 /CUMM) 0.1 Absolute Basophils (0.0 - 0.2 /CUMM) 0 03/02 0708 Chemistry Sodium (137 - 145 mmol/L) 137 Potassium (3.5 - 5.1 mmol/L) 4.4 Chloride (98 - 107 mmol/L) 104 Carbon Dioxide (22 - 30 mmol/L) 24 Anion Gap (5 - 16) 10 BUN (7 - 17 mg/dL) 19 H Creatinine (0.5 - 1.0 mg/dL) 1.1 H Estimated GFR (>60 ml/min) 49 L BUN/Creatinine Ratio (7 - 25 %) 17.3 Troponin I (< 0.11 ng/ml) < 0.01 Hematology CBC w Diff NO MAN DIFF REQ WBC (4.8 - 10.8 /CUMM) 8.6 RBC (4.20 - 5.40 /CUMM) 3.83 L Hgb (12.0 - 16.0 G/DL) 11.0 L Hct (37 - 47 %) 33.1 L MCV (81.0 - 99.0 FL) 86.3 MCH (27.0 - 31.0 PG) 28.7 MCHC (33.0 - 37.0 G/DL) 33.3 RDW (11.5 - 14.5 %) 13.7 Plt Count (130 - 400 /CUMM) 194 MPV (7.4 - 10.4 FL) 8.0 Gran % (42.2 - 75.2 %) 86.3 H Lymphocytes % (20.5 - 51.1 %) 8.7 L Monocytes % (1.7 - 9.3 %) 5.0 Eosinophils % (0 - 5 %) 0 Basophils % (0.0 - 2.0 %) 0 Absolute Granulocytes (1.4 - 6.5 /CUMM) 7.4 H Absolute Lymphocytes (1.2 - 3.4 /CUMM) 0.7 L Absolute Monocytes (0.10 - 0.60 /CUMM) 0.4 Absolute Eosinophils (0.0 - 0.7 /CUMM) 0 Absolute Basophils (0.0 - 0.2 /CUMM) 0 Diagnostic Data EKG Results EKG tracing is independently reviewed, and reveals sinus bradycardia at 46 beats per min CXR Results No radiographic evidence of an acute cardiopulmonary process. Other Results Echocardiogram and Dr. Medellin's office: Normal left ventricular function with no significant valvular disease Pharmacologic nuclear stress test in April 2017: No evidence of ischemia. LVEF 65%. Assessment/Plan Assessment/Plan Assessment: 66-year-old female with history of hypertension, palpitations, and possible history of tachycardia status post spinal surgery, noted to be in sinus bradycardia. Blood pressure is currently normal. The patient has postoperative pain but no cardiac symptoms. Recommendations: * Discontinue metoprolol and diltiazem for sinus bradycardia * Continue losartan for blood pressure control. If blood pressure becomes elevated, the losartan dose can be increased to * Monitor on telemetry for evidence of SVT or other types of tachycardia. If tachycardia is seen then a low-dose beta-yolette may need to be reinitiated Consult Acknowledgment - Thank you for your consult request.
[2017-05-16 22:28] VITALS: BP 122/68
[2017-05-17 06:00] VITALS: BP 148/72
[2017-05-17 08:55] LABS: ABSOLUTE BASOPHIL COUNT 0 /CUMM (0.0-0.2); ABSOLUTE EOSINOPHIL COUNT 0.1 /CUMM (0.0-0.7); ABSOLUTE GRANULOCYTE CT 3.3 /CUMM (1.4-6.5); ABSOLUTE LYMPH COUNT 1.6 /CUMM (1.2-3.4); ABSOLUTE MONOCYTE COUNT 0.4 /CUMM (0.10-0.60); BASOPHIL % 0.4 % (0.0-2.0); EOSINOPHIL % 2.4 % (0-5); GRANULOCYTE % 60.2 % (42.2-75.2); HEMATOCRIT 30.9 % (37-47); MEAN CORPUSCULAR HGB 28.9 PG (27.0-31.0); MEAN CORPUSCULAR HGB CONC 33.5 G/DL (33.0-37.0); MEAN CORPUSCULAR VOLUME 86.2 FL (81.0-99.0); MEAN PLATELET VOLUME 8.1 FL (7.4-10.4); PLATELET COUNT 150 /CUMM (130-400); RBC DISTRIBUTION WIDTH 13.6 % (11.5-14.5); RED BLOOD CELL CT 3.59 /CUMM (4.20-5.40); WHITE BLOOD CELL COUNT 5.5 /CUMM (4.8-10.8)
--- NOTE | 2017-05-17 11:16 | PN- Orthopedic ---
Surgical Brief Attending Note Brief Attending Note: Patient seen by Dr. Cantu 05/17/2017 @ 07:45 AM: Dr. Cantu reviewed history (with patient and nursing care team) and EMR data, examined patient, changed dressing and discussed both current patient clinical status and care plan with patient, covering surgical PA and nursing care team. Plan is to continue standard postoperative care protocol with adjustments and accommodations made as indicated, recommended and required regarding care of perioperative new and exacerbated (primarily hemodynamic, cardiac and pulmonary) medical conditions. POD #3 No shortness of breathe or labored breathing this AM. No audible inspiratory wheeze. Saturating normally on 2L NC. No report of swallowing difficulty or problems clearing throat as was reported yesterday. No CP. Pulse mid-50s. BP slightly elevated. Patient's baseline meds restarted per Medicine recommendations. Back pain under better control today on oral meds. Standing at side of bed without difficulty or significant complaint. Dressing CD+I. Dressing changed. Incision CD+I. NVI. No posterior calf or anteromedial thigh tenderness. Continue tele monitoring until cleared by Medicine/Cardiology. Continue standard postop protocols including mobilization, qd dressing change. From Ortho Spine standpoint patient can mobilize with PT whenever she is cleared medically. Begin home D/C planning in AM.
--- NOTE | 2017-05-17 12:32 | PN- Att Addend ---
Attending Addendum Attending Brief Note S: The patient states she is feeling better. Denies any chest pain, lightheadedness, palpitations. O: VS: Vital Signs Date Time Temp Pulse Resp B/P B/P Pulse O2 O2 Flow FiO2 Mean Ox Delivery Rate 05/17 0600 98.2 56 18 148/72 98 Room Air 05/16 2228 98.0 57 20 122/68 95 Room Air 05/16 2216 Nasal 2.0L Cannula 05/16 2142 50 122/68 05/16 1400 98.6 47 20 126/60 95 Room Air Intake & Output 05/17 1600 05/17 0800 05/17 0000 Intake Total 600 210 Output Total 450 350 Balance 150 -140 Intake, IV 400 150 Intake, Oral 200 60 Output, Urine 450 350 Current Medications Sig/[place] Start time Last Medication Dose Route Stop Time Status Admin Acetaminophen 650 MG Q6P PRN 05/14 1815 AC PO Atorvastatin Calcium 10 MG AT BEDTIME 05/15 2200 AC 05/16 PO 2142 Benzocaine/Menthol 1 LUCAS Q2P PRN 05/15 1130 AC PO Cefazolin Sodium 2 GM IQ8 05/15 1230 DC 05/17 N/A 1 UNIT IV 05/17 1228 0810 Cholecalciferol 2,000 IU 2200 05/15 2200 AC 05/16 PO 2142 Diazepam 5 MG TID PRN 05/14 1515 AC PO Docusate Sodium 100 MG DAILY 05/15 1000 AC PO Ketorolac 15 MG TID PRN 05/14 1515 AC 05/17 Tromethamine IV 1223 Lactated Ringer's 1,000 ML Q20H 05/16 1915 AC 05/16 IV 2147 Lactated Ringer's 1,000 ML Q8H 05/16 0830 DC 05/16 IV 1030 Losartan Potassium 25 MG QPM 05/14 2200 AC 05/16 PO 2142 Magnesium Oxide 400 MG QPM 05/14 2200 AC 05/16 PO 2142 Metoprolol Succinate 25 MG DAILY 05/17 1235 AC PO Morphine Sulfate 4 MG Q2P PRN 05/14 1815 AC 05/17 IV 0637 Omeprazole 40 MG DAILY AC 05/15 0700 AC 05/17 PO 0635 Ondansetron HCl 4 MG Q6P PRN 05/14 1815 AC IV Oxycodone/ 1 TAB Q4P PRN 05/14 181 AC Acetaminophen PO Oxycodone/ 2 TAB Q4P PRN 05/14 1815 AC 05/16 Acetaminophen PO 0554 Polyethylene Glycol 17 GM DAILY 05/15 1000 AC PO Promethazine HCl 12.5 MG Q6P PRN 05/14 181 AC IV 05/21 1459 Senna 374 MG BID 05/15 1000 AC PO Chest: clear Cor: RRR nl S1, S2 w/o murm (HR 70's) Abd: BS+, soft, NT Ext: no edema Labs: Laboratory Tests 05/17/17 0625: Anion Gap 7, Estimated GFR > 60, BUN/Creatinine Ratio 16.3, Magnesium 1.9, CBC w Diff NO MAN DIFF REQ, RBC 3.59 L, MCV 86.2, MCH 28.9, MCHC 33.5, RDW 13.6, MPV 8.1, Gran % 60.2, Lymphocytes % 29.6, Monocytes % 7.4, Eosinophils % 2.4, Basophils % 0.4, Absolute Granulocytes 3.3, Absolute Lymphocytes 1.6, Absolute Monocytes 0.4, Absolute Eosinophils 0.1, Absolute Basophils 0 05/16/17 1400: Troponin I Cancelled Impression/Plan: #Bradycardia- HR over last 24 hours improved- lowest on monitor was 46 range. This morning now in 70's. Plan: Will restart Toprol XL [address] Mario. Continue to hold Diltiazem XR. Dr. Mario will get details of former Holter monitor done by Dr. Medellin (?SVT). #HTN- patient BP as above. Slightly elevated today. Plan: Continue Losartan and add Metoprolol XL. Continue to hold Diltiazem XR. #H/O Palpitations- unclear as to results of her prior Holter with Dr. Medellin (? SVT). Plan: As above, review prior Holter done by Dr. Medellin in past. #Chest Discomfort- was fleeting (none at present). Troponins negative. Pre-op stress test also negative. Plan: Will follow for symptoms. #S/P Lumbar Laminectomy- doing well. Plan: As per surgery. Will need PT.
--- NOTE | 2017-05-17 12:56 | PN- Cardiology ---
Subjective Subjective: Sinus bradycardia is significantly improved, with heart rate currently in the 80s-90s. No chest pain. No palpitations. No lightheadedness or dizziness. No nausea or vomiting. No significant tachyarrhythmias seen on telemetry Objective Vital Signs and I&Os Vital Signs Date Time Temp Pulse Resp B/P B/P Pulse O2 O2 Flow FiO2 Mean Ox Delivery Rate 05/17 06 98.2 56 18 148/72 98 Room Air 05/16 2228 98.0 57 20 122/68 95 Room Air 05/16 2216 Nasal 2.0L Cannula 05/16 2142 50 122/68 05/16 1400 98.6 47 20 126/60 95 Room Air Intake & Output 05/17 1600 05/17 0805/17 0000 05/16 1600 05/16 0805/16 0000 Intake Total 600 210 500 840 Output Total 366 501 5555 700 Balance 150 -140 500 -1065 140 Intake, IV 400 150 500 Intake, Oral 200 60 0 840 Output, 65 Drainage Output, Urine 979 058 7773 700 Physical Exam: Gen: The patient is in no acute distress HEENT: Normal nose, ears, and oropharynx. Pupils equal bilaterally. Conjunctiva normal. Neck: Supple with no JVD, no masses, and no thyromegaly Lungs: Clear to auscultation with normal respiratory effort Heart: RRR, S1, S2, no murmurs. No peripheral edema, 2+ pulses in the lower extremities bilaterally Abdomen: Soft, nontender, no masses. No hepatomegaly. No splenomegaly Extremities: No clubbing or cyanosis. Normal muscle strength in the upper and lower extremities Skin: Normal skin turgor with no skin ulcers or lesions noted. Neuro: Cranial nerves intact. Sensation intact Current Medications: Current Medications Sig/[place] Start time Last Medication Dose Route Stop Time Status Admin Acetaminophen 650 MG Q6P PRN 05/14 1815 AC PO Atorvastatin Calcium 10 MG AT BEDTIME 05/15 2200 AC 05/16 PO 2142 Benzocaine/Menthol 1 LUCAS Q2P PRN 05/15 1130 AC PO Cefazolin Sodium 2 GM IQ8 05/15 1230 DC 05/17 N/A 1 UNIT IV 05/17 1228 0810 Cholecalciferol 2,000 IU 2200 05/15 2200 AC 05/16 PO 2142 Diazepam 5 MG TID PRN 05/14 1515 AC PO Docusate Sodium 100 MG DAILY 05/15 1000 AC PO Ketorolac 15 MG TID PRN 05/14 1515 AC 05/17 Tromethamine IV 1223 Lactated Ringer's 1,000 ML Q20H 05/16 1915 AC 05/16 IV 2147 Lactated Ringer's 1,000 ML Q8H 05/16 0830 DC 05/16 IV 1030 Losartan Potassium 25 MG QPM 05/14 2200 AC 05/16 PO 2142 Magnesium Oxide 400 MG QPM 05/14 2200 AC 05/16 PO 2142 Metoprolol Succinate 25 MG DAILY 05/17 1235 AC PO Morphine Sulfate 4 MG Q2P PRN 05/14 1815 AC 05/17 IV 0637 Omeprazole 40 MG DAILY AC 05/15 0700 AC 05/17 PO 0635 Ondansetron HCl 4 MG Q6P PRN 05/14 1815 AC IV Oxycodone/ 1 TAB Q4P PRN 05/14 1815 AC Acetaminophen PO Oxycodone/ 2 TAB Q4P PRN 05/14 1815 AC 05/16 Acetaminophen PO 0554 Polyethylene Glycol 17 GM DAILY 05/15 1000 AC PO Promethazine HCl 12.5 MG Q6P PRN 05/14 1815 AC IV 05/21 1459 Senna 374 MG BID 05/15 1000 AC PO Results Last 48 Hrs of Labs/Mics: Laboratory Tests 05/17/17 0625: Anion Gap 7, Estimated GFR > 60, BUN/Creatinine Ratio 16.3, Magnesium 1.9, CBC w Diff NO MAN DIFF REQ, RBC 3.59 L, MCV 86.2, MCH 28.9, MCHC 33.5, RDW 13.6, MPV 8.1, Gran % 60.2, Lymphocytes % 29.6, Monocytes % 7.4, Eosinophils % 2.4, Basophils % 0.4, Absolute Granulocytes 3.3, Absolute Lymphocytes 1.6, Absolute Monocytes 0.4, Absolute Eosinophils 0.1, Absolute Basophils 0 05/16/17 1400: Troponin I Cancelled 05/16/17 0810: Anion Gap 9, Estimated GFR > 60, BUN/Creatinine Ratio 21.1, Magnesium 2.2, Troponin I < 0.01, CBC w Diff NO MAN DIFF REQ, RBC 3.68 L, MCV 86.2, MCH 28.6, MCHC 33.2, RDW 14.2, MPV 7.5, Gran % 69.9, Lymphocytes % 22.7, Monocytes % 6.5, Eosinophils % 0.6, Basophils % 0.3, Absolute Granulocytes 6.7 H, Absolute Lymphocytes 2.2, Absolute Monocytes 0.6, Absolute Eosinophils 0.1, Absolute Basophils 0 Assessment/Plan Assessment/Plan Assessment: 1. Hypertension 2. Sinus bradycardia, 3. Possible history of tachyarrhythmia Plan: * Restart Toprol-XL 25 mg daily * Keep off diltiazem given sinus bradycardia * Continue other cardiac medication * Continue to monitor insulin Continue telemetry? Yes
[2017-05-17 14:00] VITALS: BP 146/70
--- NOTE | 2017-05-17 16:46 | PN- Orthopedic ---
Subjective Subjective: pt in bed with pain controlled on IV medication. discussed switching over to oral medication in preparation for dc to home. Pt worried that she will have another "respiratory attack" with the percocet if she takes it again. We agreed to try Naproxen with PO dilaudid for breakthrough pain. No Bm yet. voiding. Ambulating the bathroom. denies paresthesias deneis CP/SOB and fevers Objective Vital Signs and I&Os Vital Signs Date Time Temp Pulse Resp B/P B/P Pulse O2 O2 Flow FiO2 Mean Ox Delivery Rate 05/17 1632 70 146/70 05/17 1400 99.0 70 20 146/70 92 Room Air 05/17 0600 98.2 56 18 148/72 98 Room Air 05/16 2228 98.0 57 20 122/68 95 Room Air 05/16 2216 Nasal 2.0L Cannula 05/16 2142 50 122/68 Intake & Output 05/17 1600 / 0800 /04 0000 05/16 1600 05/16 0800 05/16 0000 Intake Total 700 600 210 500 840 Output Total 257 667 4460 700 Balance 700 150 -140 500 -1065 140 Intake, IV 100 400 150 500 Intake, Oral 600 200 60 0 840 Output, 65 Drainage Output, Urine 883 922 5179 700 Physical Exam: gen-nad resp- clear cardio-rrr abd- soft, nontender ext- pulses equal bilat. distal sensory and motor function intact Assessment/Plan Assessment/Plan 66yo F SP L3-4 lumbar lami with fusion POD3. stable Transition to PO pain meds PT Appreciate cardio recomendations for cardiac meds dvt ppx- alps reg diet dressing changed by Dr Garber today Core Measures Venous Thromboembolism VTE Risk Factors Age>40 No Mechanical VTE Prophylaxis d/t N/A MechProphylax Ordered No VTE Pharm Prophylaxis d/t Other (physician declined)
[2017-05-17 22:23] VITALS: BP 150/90
[2017-05-18 06:41] VITALS: BP 166/84
--- NOTE | 2017-05-18 07:28 | PN- Neurosurgical ---
Surgical Brief Attending Note Brief Attending Note: Postoperative day 4 Still some persistent lower back pain but somewhat improved No leg pain Able to get up and go to the bathroom Off all cardiac medications, being reintroduced slowly Waiting on Colten Medellin MD's advice Stable from a neurosurgical aspect
[2017-05-18] MEDS ORDERED: HYDROMORPHONE HC2 M1 PO ×2 (13:51→14:13)
[2017-05-18] MEDS ORDERED: DIAZEPAM5 M1 PO ×2 (13:51→14:13)
[2017-05-18] MEDS ORDERED: DOCUSATE SODIU100 M3 PO ×2 (13:51→14:13)
[2017-05-18 14:09] VITALS: BP 162/88
--- NOTE | 2017-05-18 18:45 | PN- Cardiology ---
Subjective Subjective: The patient is comfortable. No chest pain. No palpitations. No diaphoresis. No shortness of breath. She is in a normal sinus rhythm on telemetry. Objective Vital Signs and I&Os Vital Signs Date Time Temp Pulse Resp B/P B/P Pulse O2 O2 Flow FiO2 Mean Ox Delivery Rate 05/18 1409 98.2 74 18 162/88 94 Room Air 05/18 1338 72 162/88 05/18 0641 98.2 66 18 166/84 93 Room Air 05/17 2223 99.3 85 20 150/90 91 Room Air 05/17 2122 73 150/90 Intake & Output 05/18 1600 05/18 0800 05/18 0000 05/17 1600 05/17 0800 05/17 0000 Intake Total 720 240 240 700 600 210 Output Total 450 350 Balance 720 240 240 700 150 -140 Intake, IV 100 400 150 Intake, Oral 720 240 240 600 200 60 Number 0 1 Bowel Movements Output, Urine 450 350 Physical Exam: Gen: The patient is in no acute distress HEENT: Normal nose, ears, and oropharynx. Pupils equal bilaterally. Conjunctiva normal. Neck: Supple with no JVD, no masses, and no thyromegaly Lungs: Clear to auscultation with normal respiratory effort Heart: RRR, S1, S2, no murmurs. No peripheral edema, 2+ pulses in the lower extremities bilaterally Abdomen: Soft, nontender, no masses. No hepatomegaly. No splenomegaly Extremities: No clubbing or cyanosis. Normal muscle strength in the upper and lower extremities Skin: Normal skin turgor with no skin ulcers or lesions noted. Neuro: Cranial nerves intact. Sensation intact Current Medications: Current Medications Sig/[place] Start time Last Medication Dose Route Stop Time Status Admin Acetaminophen 650 MG Q6P PRN 05/14 1815 DCD PO Atorvastatin Calcium 10 MG AT BEDTIME 05/15 2199 DCD 05/17 PO 2122 Benzocaine/Menthol 1 LUCAS Q2P PRN 05/15 1130 DCD PO Cholecalciferol 2,000 IU 05/15 DCD / PO 2122 Diazepam 5 MG TID PRN 05/14 1515 DCD 05/18 PO 0824 Docusate Sodium 100 MG DAILY 05/15 1000 DCD PO Hydromorphone HCl 4 MG Q4P PRN 05/18 0830 DCD PO Hydromorphone HCl 2 MG Q4P PRN 05/18 0830 DCD 05/18 PO 1556 Hydromorphone HCl 2 MG Q6P PRN 05/17 1615 DC 05/18 PO 0242 Lactated Ringer's 1,000 ML Q20H 05/16 1915 DC 05/16 IV 2147 Losartan Potassium 25 MG QPM 05/14 2200 DCD 05/17 PO 2122 Magnesium Oxide 400 MG QPM 05/14 2200 DCD 05/17 PO 2122 Metoprolol Succinate 25 MG DAILY 05/17 1235 DCD 05/18 PO 1338 Morphine Sulfate 4 MG Q2P PRN 05/14 1815 DC 05/18 IV 0614 Naproxen 250 MG BID 05/17 2200 DCD 05/18 PO 1011 Omeprazole 40 MG DAILY AC 05/15 0700 DCD 05/18 PO 0615 Ondansetron HCl 4 MG Q6P PRN 05/14 1815 DCD IV Patient Medication 1 ED ONE ONE 05/18 1430 DC Teaching ED 05/18 1431 Polyethylene Glycol 17 GM DAILY 05/15 1000 DCD PO Promethazine HCl 12.5 MG Q6P PRN 05/14 1815 DCD IV 05/21 1459 Senna 374 MG BID 05/15 1000 DCD PO Results Last 48 Hrs of Labs/Mics: Laboratory Tests 05/17/17 0625: Anion Gap 7, Estimated GFR > 60, BUN/Creatinine Ratio 16.3, Magnesium 1.9, CBC w Diff NO MAN DIFF REQ, RBC 3.59 L, MCV 86.2, MCH 28.9, MCHC 33.5, RDW 13.6, MPV 8.1, Gran % 60.2, Lymphocytes % 29.6, Monocytes % 7.4, Eosinophils % 2.4, Basophils % 0.4, Absolute Granulocytes 3.3, Absolute Lymphocytes 1.6, Absolute Monocytes 0.4, Absolute Eosinophils 0.1, Absolute Basophils 0 Assessment/Plan Assessment/Plan Assessment: 1. Hypertension 2. Sinus bradycardia, 3. Possible history of tachyarrhythmia Plan: * Continue metoprolol * Keep off diltiazem * Clear for discharge from cardiac standpoint * Follow up in the office with Dr. Medellin Continue telemetry? No
--- NOTE | 2017-05-25 16:40 | Operative Report ---
Operative/Inv Procedure Report Surgery Date: 05/14/17 Name of Procedure: 1) L3 Revision Left Decompressive Hemilaminectomy, L3-L4 Revision Left Subtotal Facetectomy, Revision Left Nerve Root Exit Zone Extensive Foraminotomy With Revision Left Extensive Decompressive Intracanal And Subtotal Decorticating Disk Space Discectomy (Mick/Alondra) 2) L3 New Right Decompressive Hemilaminectomy, L3-L4 Partial Medial Facetectomy And Expanding Foraminotomy (Mick/Alondra) 3) L3-L4 Multicolumn (Anterior Column Interbody And Posterobilateral Column Osteoarticular Element Intertransverse Process) Instrumented Fusion (Alondra- Mick Co-Surgeons) 4) L3-L4 Implantation Of Left Interbody Cage Instrumentation (Alondra/ Mick) 5) L3-L4 Implantation Of Posterobilateral Uomqval-Hlbuu-Nna Non-Segmental Instrumentation (Alondra/Mick) 6) L3-L4 Stealth Frameless Stereotactic Computer-Assisted Spinal Navigational Placement Of Posterobilateral Pedicle Screw Instrumentation ( Alondra) 7) [place], Preparation And Implantation Of Iliac Crest Autologous Bone Marrow Aspirate (Alondra) 8) Preparation, Reconstitution And Implantation Of L3-L4 Interbody And Posterobilateral Intertransverse Process Nonstructural Allograft Subtitute Osteopromotive Material (Alondra) 9) [place]ham, Preparation And Implantation Of L3-L4 Interbody And Posterobilateral Intertransverse Process Morselized Local Autograft (Alondra) Pre-Operative Diagnosis: Primary Surgically Treated Diagnoses: 1) L3-L4 Lumbar Intervertebral Disc Disorder With Associated Left Mid-Lumbar Distribution Radiculopathy 2) L3-L4 Lumbar Intervertebral Spondylosis With Associated Left Mid-Lumbar Distribution Radiculopathy 3) L3-L4 Left Moderate To Severe Lateral Zone (Mild Left Lateral Recess And Moderate to Severe Left Foraminal) Osseous And Postoperative Fibrotic Soft Tissue Disk Space Level Lumbar Spinal Stenosis 4) Left Lower Extremity Mid-Lumbar Distribution (Anterolateral Thigh) Radiculopathy (With Radiating Symptoms And Findings Including Constant Resting, Positional And Claudicating Activity-Related Severe Pain And Moderate Motor Deficits But Without Sensory And Other Radicular Or Functional Deficits) With Distinct Features From Associated Causal Intervertebral Disc Disorder And Spondylosis 5) L3-L4 Severe Left Greater Than Right Degeneration Of Lumbar Intervertebral Disc Resulting In Significant Asymmetrical Disk Space Collapse And Left Greater Than Right Vertical Foraminal Narrowing, Stenosis And Adjacent Endplate MRI Modic Signal As Well As Radiologic And CT Sclerotic And Erosive Changes 6) L3-L4 Lumbar Spondylosis 7) L3-L4 Left Intraforaminal Displacement Of Degenerative Lumbar Intervertebral Disc 8) L3 Left Dorsolateral, Lateral And Ventrolateral Zone Adherent, Tethering, Neurocompressive And Possibly Circumferentially Neuroconstricting Epidural Fibrosis 9) L3 Left Lumbar Spondylolysis 10) L3-L4 Bilateral Degenerative Lumbar Facet Osteoarthritis 11) L3-L4 Bilateral Hypertrophic Degenerative Lumbar Facet Arthritis 12) L3-L4 Degenerative And Secondary Postoperative Spinal Segmental Moderate Clinical And Mild Radiologic Microinstability (Angular Motion Greater Than Adjacent Segments Without Meeting Radiologic Mechanical Criteria For Angular Segmental Instability) Likely Associated With Exacerbation Of Left Foraminal Encroachment And Positional Or Activity-Related Stenotic Symptoms 13) Severe, Activity And Functionally Limiting, Intermittently Incapacitating, Debilitating And Disabling Lumbosacral Region Back Pain 14) L3-L4 Left Dorsolateral Lumbar Decompression (Hemilaminotomy) And Discectomy (2004) Postprocedural Status Secondary Surgically Relevant Diagnoses: 15) Diffuse Lumbar Regional Spinal Degenerative Arthritis (Spondylopathy) Perioperatively Clinically Relevant Diagnoses: 16) Lumbosacral Regional Spinal Degenerative Arthritis (Spondylopathy) 17) Diffuse Thoracic Regional Spinal Degenerative Arthritis (Spondylopathy) Post-Operative Diagnosis: Same as preoperative diagnosis list with the addition of typical intraoperative structural, postoperative symptomatic and post-procedural status diagnoses. Estimated Blood Loss: 750 cc estimated blood loss 360 cc cell saver return Surgeon/Bilingual Research Interviewer: KEELY CAMARGO MD - Primary Admitting Orthopaedic Co-Surgeon NETO BARTON MD - Primary Consulting Neurological Co-Surgeon Surgical Providers: Regarding Orthopaedic Spine Portion Of Procedure Dictated Here: Keely Camargo M.D. - Orthopaedic Spine Surgeon (Co-Surgeon/Primary Admitting Surgeon) Neto Barton M.D. - Neurosurgeon (Co-Surgeon/Bilingual Research Interviewer Surgeon) See Neurosurgical Operative Report Regarding Surgical Provider Designation For Neurosurgical Spine Portion Of Procedure Anesthesia: general endotracheal tube Monitors: Standard general anesthesia and other perioperative monitoring was performed per anesthesia protocols. Standard Intraoperative EMG, SSEP and MEP electrophysiological monitoring ( NeuroAlert) Refer to anesthesia and intraoperative electrophysiological monitoring records for details. IV Fluids: Standard anesthesia fluid management was performed without requirement for additional or emergent fluid resuscitation. Refer to anesthesia records for details. Implants: Implants Placed: Posterolateral Lumbar Region Interbody Implants: Rage Frameworks [employer] [place] FUSE Titanium Posterolateral Interbody Cage Implant: 1 x 11 mm Height x 9 mm Width x 24.5 mm Depth x 4 Degree Lordosis On The Left At L3-L4 Posterobilateral Lumbar Region Transpedicular Transvertebral Implants: Sebeniecher Appraisalsa ATS System Posterobilateral Transpedicular Transvertebral Pklyvmw-Sftjb-Izi Construct: 2 x 6.5 mm Diameter x 50 mm Length Dual Thread Pitch Pedicle Screws (One On Each Side) At L3 2 x 6.5 mm Diameter x 50 mm Length Dual Thread Pitch Pedicle Screws (One On Each Side) At L4 2 x 4.75 mm Diameter x 30 mm Length Busy-Chrome Rods (One On Each Side) At L3-L4 Graft Placed: Autograft Placed: Morselized Locally Harvested Autograft Harvested From: Bilateral (Revision Left And New Right) L3 Hemilaminectomies And Bilateral L3-L4 (Subtotal Left And Partial Medial Right) Facetectomies Placed At L3-L4 In Anterior And Posterobilateral Columns In Disk Space Anterior To And Surrounding Interbody Cage In Central Chamber Of Interbody Cage In Bilateral Intertransverse Posterolateral Spaces Allograft Placed: Nonstructural Processed Allograft Substitute Osteopromotive Material Placed: [employer] [place] [employer] [place] DBF 1 x 6 cc Container: ~2 cc In The L3-L4 Disk Space Anterior To And Surrounding Interbody Cage ~2 cc In The Each Posterolateral Intertransverse Space At L3-L4 Urine Output: Refer to anesthesia records for details. Drains: Large bore (15 Indonesian) subfascial AIDEN drains x 2 were placed and attached to medium compression vacuum bulb suction reservoirs. The fenestrated portions of both drain tubes were placed in each posterolateral intertransverse subfascial space with the unfenestrated portion exiting through the deep muscle, fascia, subcutaneous tissue, and skin of the superolateral aspect of each surgical site side wall without suture fixation. Specimens: Removed lumbar disk fragments sent to pathology for analysis per hospital protocol Complications: None Operative/Procedure Note Note: Preoperative Holding Area Assessment/Preparation: The patient was evaluated in the preoperative holding area prior to surgery and no clinical changes or contraindications to surgical intervention were documented compared to the lonstanding preoperative baseline subjective symptoms , reported exacerbated symptoms with provocative activity or testing and minimal (but progressing despite optimized conservative management) objective or functional deficits documented on office orthopaedic, neurosurgical and medical clearance general, neurovascular and musculoskeletal evaluations. The surgical plan and site were confirmed with the patient and preoperative paperwork was finalized. The region of the intended surgical site was cleansed, prepped and marked per protocol. The surgeons, anesthesia care team members, and operating room staff confirmed the patient identity, surgical procedure, and operative site as well as other clinical details with the patient in an initial documented preoperative confirmation (awake time out) prior to the administration of sedation or anesthesia. Surgical Procedure: Dr. Camargo and Dr. Barton were both present for and participated equally as co-surgeons in all clinically significant phases of the surgical procedure documented below as well as for all critical intraoperative and perioperative decisions and interventions. The set-up, positioning, frameless CT-referenced stereotactic analysis and guidance, multicolumn (interbody cage and posterobilateral zmdkplc-zxwwd-jro construct) instrumentation, multicolumn ( interbody and posterobilateral intertransverse process space) arthrodesis and closure portions of the procedure are described in greatest detail in this operative report. Refer to Dr. Warren Neurosurgical operative report for additional details particularly regarding the electrophysiological monitoring, exposure, revision and new osseous and soft tissue decompressive bilateral hemilaminotomies, facetectomies and foraminotomies, epidural neurolysis, revision discectomy, osteophytectomies, and neural element decompression portions of the procedure. Set-Up/Positioning/Exposure - The patient was brought to the operating room in stable condition and underwent uncomplicated induction of general anesthesia, intubation, and placement of all appropriate monitors, lines and catheters without difficulty. Administration of 2 grams of IV Ancef based on patient body mass was given for surgical prophylaxis and was completed at least 30 and less than 60 minutes prior to making an incision. This antibiotic dose was repeated at four hour intervals throughout the procedure per standard operatve protocols. The patient was positioned prone on the [place] operating table in standard fashion for a mid- lumbar decompression and multicolumn instrumented fusion taking care to protect and stabilize the spine during transfer, avoid positions of nerve stretch, pad all pressure points, and support the head without any pressure on the eyes using a foam head rest and head-holding frame. Electrophysiological monitoring electrodes were applied per standard monitoring protocol. The arms were abducted less than 90 degrees at the shoulders, flexed less than 90 degrees at the elbows and supported on well-padded arm-boards with additional foam padding from the axillary regions to the hands. All pressure points were either fully padded or supported without any contact at all between pads. Baseline preoperative electrophysiological monitoring readings were obtained and no gross abnormalities were noted with no asymmetry or other finding to suggest occult compression or neurophysiologic deficit. The surgeons, anesthesia care team, and operating room staff again documented the patient identity, surgical procedure, and operative site as well as other clinical details in a final documented confirmation (final time out) prior to beginning the procedure. A cross-table lateral fluoroscopic image was obtained with a skin marker in place to determine the optimal level for incision, to document optimized intraoperative lumbar alignment, and to confirm acceptable radiologic visualization of the intended operative levels with sufficient detail down to the lower lumbar and lumbosacral levels throughout the procedure for consistent level counting and identification. The approach, exposure, hemostasis, retractor placement, fluoroscopic identification of intended operative level, new right and revision left hemilaminotomies, facetectomies, foraminotomies, epidural neurolysis, discectomy and decompression portions of the procedure are dictated in greatest detail by Dr. Barton in his Neurosurgery operative report. Refer to that document for additional details. In brief summary, after sterile prep and drape using standard technique with DuraPrep, the patient's previous surgical site was mapped, infiltrated with 0.5% Marcaine local anesthetic, and made extending longitudinally from the superior tip of the L2 spinous process to the superior tip of the L4 spinous process overlying the intended L3 operative laminar and L3 -L4 operative interlaminar operative levels and including the adjacent spinous processes for fixation of the navigation reference array. Hemostasis was achieved using Bovie and Bipolar electrocautery beginning with the incision and continuing throughout the procedure with settings appropriate to each progressive level. The lumbosacral fascia was divided over the left side of the L3 and superior L4 spinous process tips as well as the bridging interspinous ligament segment using the Bovie electrocautery which was also used to maintain hemostasis throughout the exposure. Care was taken to preserve the interspinous ligament so as to maintain optimal postoperative stability and motion segment ligamentous tension where possible. The dissection was then carried down the left side of the middle and inferior L3 spinous process, the interspinous space and the superior margin of the L4 spinous process and then extended laterally to expose the corresponding laminae and interlaminar space at that level out to the edge of the left L3-L4 facet capsule which was preserved. Care was taken to dissect along the periphery of the previous laminar opening and identify the laminectomy edge without entering the canal or performing any epidural neurolysis at this point. Moderate extraspinal fibrotic tissue from previous surgery was dissected to achieve this exposure. Once the previous L3 left hemilaminectomy edge was identified, a curved curette was used to dissect in a subperiosteal plane down the laminar edge into the dorsal canal and beneath the inferior laminar edge above the level of epidural fibrosis. A marking instrument was placed beneath the inferior edge of the presumptive L3 lamina and confirmed to be at the intended interspace on cross- table lateral fluoroscopic image. Intraoperative findings of moderate degenerative disk disease and mild scoliosis was unchanged from the preoperative radiologic studies and no obvious interval change or additional abnormality was noted. The alignment of the spine on this intraoperative localization radiograph was noted to be adequately lordotic and unchanged from preoperative office studies. Despite L3 left spondylolysis noted on preoperative radiologic studies, no gross spondylolisthesis was appreciated on this image taken in the lordotic supported prone position on the [place]ov[place] table. Once the appropriate levels were fluoroscopically confirmed, the fascia was divided on the right side of the L3 and L4 spinous process tips and dissection was continued bilaterally to fully expose the intended interlaminar level (L3-L4 ) out to the capsules of the facet joints which were initially preserved on both sides. Bovie and Bipolar electrocautery as well as a Burk elevator were then used to dissect over the facet joints, down the lateral margins of the facets ( taking care to maintain hemostasis of the faceteal vessels where necessary) and over the dorsal surfaces of the L3 and L4 transverse processes and the L3-L4 intertransverse membranes out to the lateral extent of the transverse process tips. Once this dissection and confirmation of operative level was completed, the lateral gutters were thoroughly irrigated and packed bilaterally with counted moist sponges. Attention was then turned to the midline decompression. Hemilaminotomy/Discectomy/Decompression - The lateral margin of the pars interarticularis of L3 was identified so as to insure that the laminectomy did not approach, thin or destabilize this region. The spinous processes and interspinous ligaments were preserved at each exposed level. Bilateral (new right and revision left) hemilaminectomies were performed by piecemeal resection of the laminar bone using Kerrison rongeurs after dissecting under the leading edge with a curved curette to free any underlying adhesions. This sublaminar dissection was made possible on the left by the debulking of extraspinal fibrotic tissue described above. Where possible the ligamentum flavum was left in place during the osseous decompression as a protective layer and then later removed to complete the lateral recess decompression where the ligament was a significant component of the compression. Once the canal could be safely accessed on both sides, attention was turned to the adherent fibrotic tissue within the left hemilaminotomy site which was tethering the thecal sac and precluding safe dissection into the right lateral recess for decompression or into the ventral canal for discectomy. Working dorsally it was found that sublaminar L3 dissection could be safely performed on the left side by extending the hemilaminotomy opening and epidural dissection into a previously unoperated, well defined and nonadherent epidural plane without requiring more than usual revision epidural neurolysis. This allowed for complete untethering of the dorsal and dorsolateral thecal sac and provided a safe dissection plane into the lateral recess. Once this plane was dissected, the neural elements could be gently retracted with a Frederick 4 to allow for subtotal left L3-L4 facetectomy and partial unroofing foraminotomy which were performed using curved curettes for subperiosteal dissection and Kerrison rongeurs for resection. There was moderate epidural fibrotic tissue and neural element tethering in this dorsolateral and lateral zone but the degree and complexity of the epidural neurolysis required to safely untether, mobilize and protect the neural elements was still consistent with the revision decompression procedural service being performed. The left posterolateral osseous decompression described above provided adequate mobilization of the neural elements, full access to the floor of the canal and a sufficient posterolateral channel for optimal interbody cage placement. The dissection was then continued to the floor of the canal where a moderate amount of tethering epidural fibrosis was again found consistent with previous discectomy surgery. This dissection also revealed a compressive lateral disk herniation fragment which was extruded from the disk space and previously healed annulectomy site into the medial intraforaminal region. This disk fragment was partially contained in a subligamentous pocket but also had a small portion extending beyond the posterior longitudinal ligament resulting in elevation of and direct contact with the exiting left L3 nerve root. Epidural neurolysis was again necessary in this region to untether, mobilize and fully retract the neural elements sufficient for safe revision decompressive discectomy, disk space preparation and interbody cage placement. This neurolysis was well above average for a standard revision decompressive procedure due to the degree of associated degenerative and spondylotic change in the ventrolateral and midline ventral canal but was still in a range consistent with revision decompression and was not felt to require a separate procedural service. With the left revision decompression completed, a new right decompressive hemilaminectomy was performed using identical technique but without the need for neurolysis in this previously unoperated area. Osseous decompression was performed using standard technique of subperiosteal dissection with a curved curette and osseous resection with Kerrison rongeurs first of the laminar and then of the medial facet. Narrower osseous resection (involving partial medial facetectomy and medial expanding foraminotomy) was sufficient on the right side to achieve decompression and wider resection was not required for access to place an interbody cage as was planned for the left. The stenosis in the bilateral foraminal zones was found to be associated with hyperemia of the nerve root meninges, inflammation and irritation (worse on the left than the right due to tethering and additional compression related to fibrotic tissue from previous surgery) which was consistent with the severity, chronicity and poor response to conservative measures of the patient's static and claudicating symptoms and deficits confirming the indications for surgery. All of these findings also suggested that improvement would have been unlikely with further conservative management and without surgical intervention. With the perineural dissection, neurolysis and exposure of the contained disk herniation fragment complete, the traversing nerve root and thecal sac could be gently and safely retracted nearly to the midline with a Love nerve root retractor so as to expose the disk space while protecting the neural elements. Epidural hemostasis was achieved using Bipolar electrocautery and gentle packing of the epidural space with small volume of Thrombin soaked Gelfoam held with Patties which also provided some medial retraction of the neural elements for optimal exposure of the disk space. This allowed safe revision annulectomy using a #11 scalpel blade followed by complete decompressive discectomy of the primary intraforaminal herniated fragment and any remaining loose or nonviable intradiscal fragments using standard technique with pituitary rongeurs. Before proceding with the decorticating discectomy and fusion, the decompression was again checked bilaterally to insure clear passage by a nerve hook and Floral instrument dorsal and ventral to the nerve root within the foramen without evidence of residual compression to the maximal depth palpable with those instruments. Moderate irritability, hyperactive neural activity and muscular contractions were noted from even the very gentle manipulation and mechanical stimulus required to achieve neurolysis, neural element mobilization and decompressive discectomy of the extruded intraforaminal disk fragment. This was consistent with the degree of compression and irritation seen both on preoperative MRI and intraoperative inspection. These hyperactive responses were not associated with any reported intraoperative electrophysiological monitoring changes and resolved shortly following complete decompression. No further abnormal activity was noted during the remainder of the procedure. Hemostasis of osseous and epidural bleeding was achieved using Thrombin soaked Gelfoam and paddies gently applied and removed by irrigation with all bleeding controlled. Bleeding from the laminectomy edge was controlled with small amount of bone wax applied using the back of a Frederick with any residua removed. Arthrodesis/Instrumentation - The fusion portion of the procedure including instrumentation and grafting is dictated in greatest detail in this operative report. With the neural elements retracted and protected using a Love nerve root retractor and the left side of the intervertebral interval fully exposed, the disk space was prepared and optimized for interbody arthrodesis by performing a subtotal discectomy using straight and angled pituitary rongeurs followed by chondral endplate resection down to punctate cortical bleeding using sequential rotating distracting and decorticating marisa and multiple angled serrated curettes. As expected based on preoperative imaging, the disk space was extremely degenerative with minimal disk space height and near [id number] contact palpable throughout the width and depth of the space. Although the degree of degeneration made it very likely that the anterior annulus was at least partially incompetent, there were no defects on gentle palpation at the anterior and anterolateral disk space margins using the above curettes suggesting the presence of dense fibrotic scarring which should contain the graft within the disk space and prevent extrusion of graft material. Care was still taken to avoid any projection of instruments, implants or graft beyond the annular disk margin in any direction. Just prior to interbody implant and graft placement, final disk space preparation with focal osseous endplate perforation was performed using the serrated curved curettes such that a focal area of each endplate was breached to bleeding cancellous bone at the intended interface with the graft-filled central chamber of the cage implant so as to promote optimal ingrowth. Care was taken to preserve the cortical integrity of the peripheral zones of both osseous endplates at the perimeter of this small central cortical breach in the region of the buttressed cage jj for optimal support of the interbody cage implant so as to optimize interosseous segmental fixation and stability while minimizing the risk of endplate fracture and/or subsidence. Hemostasis was confirmed and the interspace and surgical site were thoroughly irrigated prior to placement of the implant and central morselized autograft. Under fluoroscopic visualization, the L3-L4 disk space was templated using standard sequential trialing technique ultimately documenting optimal fit and soft tissue tension with a standard trial of 11 mm height, 24.5 mm depth, 9 mm width and 4 degrees of lordosis. Fluoroscopic anterior-posterior and lateral images were obtained and documented optimal positioning, disk space and foraminal height druze and adequate lordosis druze with good endplate support and distraction without endplate compromise. It was felt that this trial size and lordotic angle was optimal and so a final implant was chosen with all dimensions identical in size to that of the trial. Approximately 5 cc of autograft and 2 cc of a 6 cc container of [employer] Ollie Demineralized Bone Fiber (DBF) allograft substitute osteopromotive material was gently compressed into the anterior margin of the disk space and across the midline anterior and contralateral to the intended position of the interbody cage taking care to avoid projection of graft beyond the confines of the grossly degenerative disk space and incompetent annulus. Care was also taken to completely fill the height of the disk space with graft in these peripheral zones while avoiding excessive packing of graft in the intended path of the cage so that the graft would not impede optimal placement of the cage or result in projection of graft outside of the disk space during cage impaction. The 11 mm x 24.5 mm x 9 mm x 4 degree endplate angle FUSE Titanium rotating lordotic implant central chamber was packed with morselized autograft centrally such that graft was projecting slightly beyond the height of the implant so as to provide optimal graft-endplate contact after central disk space placement of the graft-filled implant and rotation into lordotic alignment per its design. The FUSE implant was then gently impacted into the interspace in the flat horizontal position until it was recessed well beyond the posterior vertebral body wall and endplate edge. Fluoroscopic anterior-posterior and lateral images documented optimal interbody cage position. The cage was then rotated 90 degrees into final vertical lordotic position per the implant design. Clockwise rotation was used for final cage positioning so as to help reduce the slight right-sided laterolisthesis noted preoperatively and confirmed on earlier intraoperative fluoroscopic images as well as to optimize the overall coronal plane final lumbosacral alignment. Final fluoroscopic views confirmed optimal cage position with partial druze of disk space and foraminal height, reduction of listhesis and partial druze of segmental and lumbosacral regional sagittal and coronal plane alignment. Once the interbody FUSE implant was in optimal position, excellent interference fit was documented with no motion visualized or palpated when gentle dorsally directed ("pull-out") force was applied to the cage using the captured impaction handle. The impaction handle was then removed and the posterior aspect of the cage was confirmed to be recessed by several millimeters within the disk space below the edge of both endplates. The Love nerve root retractor was removed and the overlying traversing neural elements were allowed to return to their normal resting position with no encroachment, contact or even close proximity noted to the interbody cage. No residual epidural fibrotic tethering or compression was noted. The shoulder and axilla of the traversing root was checked to insure that there was no significant tethering in either region which might be associated with compressive acute take-off ("kinking") at the nerve exit from the thecal sac. With the interbody implant optimally placed, attention was turned to the application of intraoperative frameless stereotactic navigation ( fixation of reference frame, acquisition of O-arm intraoperative CT scan, rendering of Elysiaalth three-dimensional spatial maps, instrument registration and intraoperative navigation) for placement of posterobilateral [id number] transvertebral instrumentation. The reference grid was rigidly fixed to the long spinous process post which was in turn rigidly clamped to the L2 spinous process that had been previously exposed and documented to be sufficiently rigid for for use as a fixed point of stereotactic reference. Prior to and following each O-Arm scan the surgical site was thoroughly irrigated with approximately 250 cc of antibiotic irrigant. With the operative field and reference frame sterilely covered, the O-Arm was brought into the room and positioned for optimal scan of the intended instrumentation levels. Reflexologist images confirmed optimal positioning with reference frame position detected by the P21 tower. O-Arm CT scan was acquired per standard protocol and the scan data was transferred to the P21 station for rendering of three-dimensional navigation model. The scan images were reviewed in all planes and found to be of good quality and anatomic detail for evaluation and stereotactic navigation of osseous structures. The O-Arm was opened and backed out of the room. The sterile covering was removed from the operative field and the surgical site was thoroughly irrigated prior to proceeding with pedicle screw navigation and placement. The instruments were registered to the reference grid and confirmed to be accurate within the spatial model by properly localizing anatomical landmarks with the registered instrument tips prior to proceeding with stereotactically guided instrumentation. With model and instrument localization accuracy confirmed, the four pedicle screws were placed using standard and identical Stealth stereotactic navigation guidance technique. At each screw site the entry point and trajectory for the pedicle screw was localized using the stereotactic pointer or awl. The awl was used to breach the outer cortex with each entry point being standard for normal anatomy patients without deformity. Each entry point was at the base of the transverse process or ala just superior to the upper flare of the pars interarticularis of that level at the inferolateral margin of the facet joint above it. Once the entry site was defined with the awl, a stereotactic pedicle dissector was advanced through the pedicle and into the anterior third of the vertebral body taking care not to angle too closely to the upper vertebral body endplate. This defined pedicle screw path was then tapped with a 5.5 mm navigational tap following the same trajectory. Initial screw length measurement was made off the tap depth markings. The screw path was palpated with a ball-tip probe to its base and along the jj of the screw hole in all four quadrants with no deep or pedicle wall cortical breach detected. With the probe at the maximal depth of the screw hole a hemostat was applied to the probe at the screw entry site and the screw length measurement was confirmed by measuring from the clamp to the tip of the probe with a ruler. The measurements were consistent in each case. Prior to final screw placement, the intertransverse spaces were thoroughly irrigated and the transverse processes, lateral facet complexes and pars interarticularis were decorticated bilaterally using the Midas Leonel drill. The appropriate size screw was then attached to the navigating pharmacy delivery driver and the screw was advanced at the stereotactically defined entry site and trajectory with excellent insertional and final torque as well as rigid final fixation and no loosening evident when posteriorly directed ("pull-out") force was applied with the pharmacy delivery driver. The pharmacy delivery driver was then removed and the implanted screw was confirmed to be in optimal position with mobile head to allow for final jim placement and fixation. This identical technique was used for placement of all four screws. Based on the above depth measurements, Medtronic mNectara system dual thread-pitch 6.5 mm diameter pedicle screws of 50 mm length were placed at each site ( bilaterally at L3 and L4). Each screw was tested using electrical stimulation and neurophysiological monitoring. All screws were found to have extremely low conductance to exiting and traversing nerve roots well within standard and acceptable levels suggesting intact pedicle wall without cortical breach to or direct screw contact with adjacent neural structures. The surgical site was again irrigated prior to sterile drape and plastic covering of the surgical field and reference grid, positioning of O-Arm and acquisition of final scan documenting excellent screw position at each site. This final scan also confirmed improved foraminal patency particularly on the left side compared to the preoperative scan. The O- Arm was again removed, optimal exposure restored and the surgical site thoroughly irrigated. With the interbody and pedicle screw instrumentation in place and prior to final interpedicular jim placement and fixation, the posterolateral fusion was then performed using standard technique. The intertransverse space was gently packed on both sides with a mixture of the remaining cleaned and morselized autograft, the remainder (4 cc) of the previously opened container of [employer] Ollie DBF in order from deep-medial (closely approximating the decorticated structures) to superficial-lateral. All graft material was divided equally between the two sides and distributed equally on each side across the intended arthrodesis level from L3 to L4. Care was taken to compress graft against the posterolateral previously decorticated structures for optimal ingrowth while avoiding any extension of graft deep (below the intertransverse membrane) or medial (close to the decompressed canal or foraminal openings) to the intended fusion bed so as to prevent any contact or impingement on the neural elements or other unintended structures. Precontoured Medtronic mNectara system 4.75 mm diameter Busy-Chrome rods each 30 mm in length were found to fit optimally on each side without the need for additional lordotic contouring. The length of both rods were checked to insure that there was only minimal extension beyond the superior or inferior screw heads with no impingement on the upper or lower facet complex. The rods were placed so as to optimize druze of lordosis with the concavity of the jim contour oriented posteriorly. Set screws were placed over the rods in the heads of each screw taking care not to cross-thread. Prior to final tightening all neural elements including each exposed and decompressed foraminal nerve root exit zone was confirmed to have unimpeded passage by palpation with a nerve hook and Floral instrument. The alignment and decompression was felt to be optimal with no additional in-situ correction required and so the set screws were tightened maximally and sheared off at preset torque per their design with the screw-jim interfaces fixed in their resting position (neutral mode) with no compression or distraction applied. The "torque-stabilizing" sleeve was used during final tightening of all set screws so insure that the reduced laterolisthesis and optimized coronal plane alignment was maintained throughout this process. This eniswwk-[id number]-rnd construct combined with the anterior implants formed a rigid construct which resisted both translational and angular forces in the sagittal, coronal and axial planes by gentle intraoperative manual testing. After final fixation each exposed foraminal opening was again checked with a Floral instrument passed above each decompressed nerve root and found to be widely patent with clear passage of the nerve root at each level on both sides. The retractors were removed and the superficial soft tissues were checked with no evidence of pressure changes or need for debridement. Continuous electrophysiological monitoring throughout the procedure showed no adverse changes at any point during the decompression, instrumentation, or at any other time during the case. Slight correction of hypolordotic lumbar segmental as well as lesser global lumbosacral regional alignment was achieved by use of a rotating, distracting lordotic intervertebral implant with specialized placement technique. Slight correction of laterolisthesis and scoliosis was also achieved by holding the alignment of the spine in the desired reduced position (using the "anti-torque" sleeve to rotate the transvertebral rods within the heads of the screws) while final tightening and construct fixation was being achieved. Given that the patient's hypolordotic, laterolisthetic and scoliotic alignment was not felt to constitute a clinically significant deformity, this correction was felt to be a consequence of and included as part of the arthrodesis and instrumentation procedures and was not separately coded. Closure/Recovery - The surgical site was thoroughly irrigated and hemostasis was carefully achieved prior to closure. FloSeal (5 cc) was placed in the lateral epidural spaces on each side. Several pieces of Thrombin-soaked Gelfoam were used to cover the laminotomy openings and placed over the dorsal surface of the lateral thecal sac and traversing nerve root on each side so as to minimize epidural fibrotic adhesions to the decompressed neural elements. 500 cc of Vancomycin powder was divided equally between the two posterolateral gutters overlying the arthrodesis bone graft. Dual large bore subfascial AIDEN drains were placed with one on each side in the lateral intertransverse spaces and carried out through the superior wall of each side of the surgical site using a trocar. Initial counts were correct prior to closure. The deep lumbar muscular layer was reapproximated using #0 Vicryl interrupted suture technique so as to minimize open subfascial space for hematoma collection. The fascial layer was reapproximated in a [id number] closure using #0 Vicryl interrupted, [id number] suture technique. The suprafacial tissues were irrigated and the remaining Vancomycin powder (250 cc) was placed in the suprafascial plane prior to final superficial closure. The deep suprafascial closure was performed with #2-0 Vicryl interrupted, simple suture technique. The superficial subcutaneous layer was closed with #3-0 undyed Vicryl inverted, interrupted, simple sutures. The skin was closed using carlo with the edges everted. A standard, sterile Xeroform dressing was placed, covered with folded fluff gauze 4x4s and ABD pads and held with Coverall with good surgical site and bilateral drain site coverage. All counts were correct prior to removing the drapes. The patient was turned into the supine position on the hospital bed using careful log-roll technique, avoiding torsional stress and stabilizing the lumbar region during transfer. She was then extubated in the operating room without difficulty. Recovery Room Assessment: The patient was transported to the recovery room in stable condition where gross neurological examination showed normal function with no deficits or worsening compared to her pre-operative assessments on initial recovery from anesthesia. In fact, the patient reported subjective improvement in her subjective left anterior thigh lower extremity radiating pain (by approximately 50%) compared to preoperative level. The patient will follow the usual postoperative protocol for mid-lumbar decompressive revision and new hemilaminotomies and unilateral revision discectomy followed by multicolumn instrumented fusion. Her postoperative care plan will include early mobilization, IV and then weaning to oral medication pain control, and home discharge planning starting on postoperative day #1 or #2. She will use a circumferential four-quadrant buttressed compression brace during the initial phase of healing for stability and to limit angular motion. Lower extremity (particularly gentle hip and knee) motion is encouraged to promote longitudinal nerve motion and minimize fibrotic neural tethering during the fibrous consolidation and motion segment stabilization healing phase. Once she is home, outpatient rehabilitation program will be arranged through the office to begin slowly but progressively at approximately 6 weeks after surgery assuming standard and uncomplicated postoperative course and following clearance at initial postoperative follow-up assessment. Given the revision nature of her lumbar procedure and significant use of allograft substitute osteopromotive material for arthrodesis graft, a spinal fusion osteogenesis stimulator is indicated and will be ordered, applied and followed through the office once approved.
== END 2017-05-18 16:35 | disposition home health service (06) | DRG 460 ==
LOC: 2NB 05-14 01:48 → SDA 05-14 01:48 → ENRESERV 05-14 16:11 → ENTRNSPT 05-14 17:33 → EDTRNSPTSTS 05-14 17:49 → 2NB 05-14 17:58 → CMPTRNSPT 05-14 18:16 → 2NB 05-15 16:45 → 1NO 05-16 09:55 → ENTRNSPT 05-18 16:15 → 1NO 05-18 16:35 → CMPTRNSPT 05-18 16:40
PROVIDERS: Physician Assistant Surgical
PROC: 0SB20ZZ Excision of Lumbar Vertebral Disc, Open Approach (ICD-10-PCS; principal; 2017-05-14)
PROC: 8E0WXBZ Computer Assisted Procedure of Trunk Region (ICD-10-PCS; principal; 2017-05-14)
PROC: 4A11X4G Monitoring of Peripheral Nervous Electrical Activity, Intraoperative, External Approach (ICD-10-PCS; principal; 2017-05-14)
PROC: 0SG0071 Fusion of Lumbar Vertebral Joint with Autologous Tissue Substitute, Posterior Approach, Posterior Column, Open Approach (ICD-10-PCS; principal; 2017-05-14)
PROC: 01NB0ZZ Release Lumbar Nerve, Open Approach (ICD-10-PCS; principal; 2017-05-14)
DX: M47.26 Other spondylosis with radiculopathy, lumbar region (principal); K73.8 Other chronic hepatitis, not elsewhere classified; E78.5 Hyperlipidemia, unspecified; I10 Essential (primary) hypertension; R55 Syncope and collapse; Z96.651 Presence of right artificial knee joint; Z90.49 Acquired absence of other specified parts of digestive tract; Z85.048 Personal history of other malignant neoplasm of rectum, rectosigmoid junction, and anus; R00.1 Bradycardia, unspecified; Z86.19 Personal history of other infectious and parasitic diseases; G47.33 Obstructive sleep apnea (adult) (pediatric); M19.90 Unspecified osteoarthritis, unspecified site
CPT/HCPCS: 1NSP; 2NBP; 2NSBP; 36415; 36592; 71045; 72020; 72100; 82436; 87086; 88304; 93005; 93010; 97110-GO; 97116-GO; 97161-GP; 97530-GO; C1713; C9399; J0131; J0461; J0690; J1100; J1200; J2405; J2550; J3370; J7040; J7042; J7120